=== PATIENT | female | born 1950 | race Caucasian/White ===

== ENCOUNTER 2016-09-19 03:09 | Inpatient (IN) | payer MEDICARE ==
[~2016-09-19] VITALS: Ht 157.5 cm; Wt 59.9 kg
--- NOTE | 2016-09-19 07:11 | NUR ---
Recieved at 0520 from the E.D. via wheelchair, states she is here for eval. by physician, acute symptoms of bipolar manic phase, consents signed, poor historian, need to contact family or pharmacy for medications. VSS,
[2016-09-19 07:46] VITALS: BP 126/64
[2016-09-19 09:02] LABS: BASOPHILS 0.1 % (0.0-2.0); EOSINOPHILS 1.1 % (0-7); HEMATOCRIT 41.6 % (36.0-48.0); HEMOGLOBIN 13.6 g/dL (12-16); IMMATURE GRANULOCYTES 0.1 % (0-5); LYMPHOCYTES 29.5 % (15-50); MCH 30.5 pg (26.0-34.0); MCHC 32.7 g/dL (31.0-37.0); MCV 93.3 fL (80.0-100.0); MEAN PLATELET VOLUME 9.1 fL (7.4-10.4); MONOCYTES 7.2 % (2-11); PLATELET COUNT 192 10x3/uL (130-400); RBC 4.46 10x6/uL (4.00-5.40); RDW 12.2 % (11.5-14.5); WBC 8.9 10x3/uL (4.8-10.8)
[2016-09-19 09:31] LABS: LDL-HDL RATIO 1.8 ratio (1.5-3.5); THYROID STIMULATING HORMONE 0.55 uIU/mL (0.36-3.74)
[2016-09-19 13:49] VITALS: BP 144/75; Ht 157.5 cm; Wt 59.9 kg
--- NOTE | 2016-09-19 15:00 | NUR ---
B)Pt alert, pacing about day room, stating, "You can't hold me here!" Pt will re-direct with calm conversation and reassurance that the staff here was going to help her feel better. I) Admin meds as ordered, provide group therapy as directed. R) No s/s adverse reaction to medications. P) Cont plan of care including meds and group therapy until discharge.
[2016-09-19 19:33] VITALS: BP 159/80
--- NOTE | 2016-09-19 22:00 | NUR ---
RECEIVED IN DAYROOM PACING AROUND SOCIALIZING. CALMM AND COOPERATIVE WITH ASSESSMENT AND CARE. SEE SHIFT ASSESSMENT FLOW SHEET FOR DETAILS.
--- NOTE | 2016-09-20 07:27 | PSY ---
PATIENT NAME:JARED WICK MEDICAL RECORD: [id number] : 50 LOCATION:[facility] ADMISSION DATE: 09/19/16 ACCOUNT: [id number] PSYCHIATRIC EVALUATION DATE OF EVALUATION: 09/19/16 Psychiatric Evaluation IDENTIFYING DATA: The patient is 65 years old and she presented to the Emergency Room last night. CHIEF COMPLAINT: Terra. HISTORY OF PRESENT ILLNESS: The patient is very delusional and manic. She is hyperverbal and disorganized in her thought processes. She had a belief that the police officers in [facility] are somehow trying to put their genitals into her hands and she is very distressed about this. She says she wants to be evaluated and for us to certify to her family that she is not "insane". The patient denies that she would seek to harm herself or others. She is very pressured in her speech, hyperverbal, disorganized in her thought processes and manic. She denies substance abuse. PAST MEDICAL HISTORY: Significant for hypertension and diabetes. PAST PSYCHIATRIC HISTORY: Significant for 30 years of treatment for a chronic mental illness. The patient has been followed on an outpatient basis by [facility]. She has had previous hospitalizations, but none recently. Her outpatient provider at the [facility] recently took her off of lithium because she was having a tremor. The lithium was subsequently restarted, but at a lower dose. FAMILY HISTORY: Unknown. SOCIAL HISTORY: The patient is . She has adult children and grandchildren. She is on disability and denies substance abuse issues. MENTAL STATUS EXAMINATION: The patient is awake, alert and oriented to person, place, time and situation. Her mood is anxious. Her affect is constricted. Thought processes are circumstantial. Memory, concentration and abstraction abilities are moderately impaired. She denies any active intent to harm herself or others as well as overt psychotic symptoms. ASSETS: Supportive family members. LIABILITIES: Limited insight. DIAGNOSTIC IMPRESSION: AXIS I: Bipolar disorder, manic. AXIS II: Deferred. AXIS III: Hypertension and diabetes. AXIS IV: Moderate stressors. AXIS V: Global assessment of functioning is 35. PLAN: At this time, the patient is admitted to the hospital secondary to agitated, manic behaviors, along with delusions. She will be comprehensively evaluated and treated with both mood stabilizing and antipsychotic medications. Her long-term prognosis is guarded. TRANSINT:[id number] Voice Confirmation ID: [id number] DOCUMENT ID: [id number] PATRICIA FLORES MD at 0727 CC: [id number] DICTATION DATE: 09/19/161525 PRIVATE DETECTIVE: 09/19/16 1549 ADM IN [facility] [address] [place] [address]
[2016-09-20 09:26] VITALS: BP 161/71
--- NOTE | 2016-09-20 12:07 | NUR ---
Patient anxious, pacing the floor, exit seeking, wringing her hands.
--- NOTE | 2016-09-20 15:13 | NUR ---
Pacing floor, scanning vision, attempting to throm herself into staff, attempting to fall and throw herself in the floor. " I need some medication my behavior is bad", dorcas stating she is anxious. Prn medications administered.
--- NOTE | 2016-09-20 16:00 | NUR ---
Patient spouse came to visit, gave him an update on patient current behavior so far today, he states oh boy she can get worst than that, informed her about her exit seeking and wanting to go home, he states he felt like he should not see her today because he knows how she can get, and informs nurse that he once had to send her to the state because she got so bad. " I think I will try to come back and visit on Wednesday" Informed him that he can try to call and talk to her between 5:30-7:00 he said that probaly would not work either.
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
[2016-09-20 19:30] VITALS: BP 135/50
--- NOTE | 2016-09-20 19:37 | NUR ---
RECEIVED IN DAYROOM. SETTING IN DAYROOM. WITH STAFF AND PEERS AT HER SIDE. SOCIALIZING WITH STAFF AND PEERS AT THIS TIME. THROWING HERSELF INTO FLOOR THIS EVENING.. ATTENTION SEEKING. REDIRECT AND REORIENT NEEDED. CONTINUES TO SET AT TABLE SOCIALIZING WITH STAFF. CONTINUE PLAN OF CARE
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
--- NOTE | 2016-09-20 22:00 | NUR ---
PRN Haldol 2 mg PO given for anxiety.
[2016-09-21] MEDS ORDERED: METOPROLOL TART25 MG PO (10:34)
[2016-09-21] MEDS ORDERED: MELATONIN 3 MG1 TAB PO (10:35)
[2016-09-21] MEDS ORDERED: ACCUPRIL5 MG PO (10:35)
[2016-09-21] MEDS ORDERED: GEODON80 MG PO (10:36)
[2016-09-21] MEDS ORDERED: PRAVACHOL20 MG PO (10:36)
[2016-09-21] MEDS ORDERED: NORVASC5 MG PO (10:37)
[2016-09-21] MEDS ORDERED: GLUCOPHAGE1000 MG PO (10:37)
[2016-09-21] MEDS ORDERED: LITHIUM CARBON150 MG PO (10:38)
[2016-09-21] MEDS ORDERED: RESTORIL15 MG PO (10:38)
[2016-09-21] MEDS ORDERED: OXYBUTYNIN15 MG/BOTT PO (10:38)
[2016-09-21] MEDS ORDERED: PEPCID20 MG PO (10:39)
[2016-09-21] MEDS ORDERED: PRECOSE25 MG PO (10:39)
[2016-09-21] MEDS ORDERED: GLIPIZIDE10 MG PO (10:40)
[2016-09-21] MEDS ORDERED: ALENDRONATE SOD70 MG PO (10:40)
[2016-09-21] MEDS ORDERED: ASPIRIN81 MG PO (10:40)
[2016-09-21 11:30] LABS: APPEARANCE CLEAR (CLEAR); BILIRUBIN NEGATIVE (NEGATIVE); COLOR YELLOW (YELLOW); GLUCOSE NEGATIVE (NEGATIVE); KETONE NEGATIVE (NEGATIVE); LEUKOCYTE ESTERASE NEGATIVE (NEGATIVE); NITRITE NEGATIVE (NEGATIVE); PROTEIN NEGATIVE (NEGATIVE); UROBILINOGEN NORMAL (NORMAL)
[2016-09-21 13:24] VITALS: BP 109/59
--- NOTE | 2016-09-21 14:00 | NUR ---
Pt sat in floor of day room, scooted all around day room on buttocks, at times when she would tire, she would lie in floor with eyes closed, then sit up and scoot around some more. At one time, she looked at another patient and called him Franky and said what a beautiful face he has. Refused to re-direct at this time.
--- NOTE | 2016-09-21 16:01 | NUR ---
B.) Received patient this am ambulating in hallway, alert and oriented to her name only. Pacing around and going into other patients room. Patient is hard to redirect, she process instructions briefly then her attention is deferred to something else, unable to follow simple instructions of taking off her wet pants and brief, dorcas started putting briefs over her wet pants. I.) Administer medications and monitor compliance, redirect for inappropriate behavior and set limitations on inappropriate behavior. Assess for any manic behavior, redirect for and intrusiveness. Monitor safety. R.) Compliant with medications, patient is manic and intrusive, difficult redirect and times, patient will do the opposite of whats asked, provided concentration activity of coloring with markers, patient would only sit still for approximately 10 minutes, did sleep approximately an hour and half, then jumped up screaming " I'm Franky, I'm Franky and I'm going to ." then laid herself in the floor with her arms out stretched, then sat up singing hymns. P.) Continue plan of care and redirecting patient for inappropriate behavior, continue to monitor and maintain safety.
--- NOTE | 2016-09-21 16:14 | NUR ---
Patient anxious, wringing hands, pacing the hallway sits in one chair then gets up and sit in another scanning the room. Prn Ativan po given for signs of anxiety.
--- NOTE | 2016-09-21 19:43 | NUR ---
RECEIVED IN DAYROOM. SETTING AT TABLE WITH PEERS AND STAFF. CHECKING DOORS. WANTS TO GO TO OTHER AREA. CALM AND COOPERATIVE WITH CARE AND ASSESSMENT. REDIRECT AND REORIENT NEEDED. CONTINUES TO SET AT TABLE WITH STAFF AND PEERS. CALM AND COOPERATIVE. CONTINUE PLAN OF CARE
--- NOTE | 2016-09-21 21:00 | NUR ---
SET HERSELF DOWN IN FLOOR AND REFUSES TO GET UP. HAD TO BE LIFTED BY STAFF AND SET IN CHAIR
[2016-09-21 22:18] VITALS: BP 165/70
--- NOTE | 2016-09-22 02:59 | NUR ---
IN [place] AT NURSES STATION SETTING IN RECLINING CHAIR. ONE ON ONE. REFUSES TO STAY IN BED.TURNING ON SHOWER AND GETTING HER BED CLOTHS WET.
--- NOTE | 2016-09-22 06:20 | NUR ---
PATIENT JUMPED OUT OF CHAIR INTO FLOOR YELLING "I FELL, I FELL". MHT WITNESSED EVENT. THEN PATIENT STATED " I FELL, I NEED PAIN MEDS".
[2016-09-22 09:02] VITALS: BP 123/73
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
--- NOTE | 2016-09-22 15:36 | NUR ---
AT 1200 TODAY LAID SELF DOWN ONTO FLOOR AND REPORTED SHE FELL.ASSISTED UP TO WHEELCHAIR PER 2.
--- NOTE | 2016-09-22 15:39 | PN ---
PATIENT:JARED WICK MEDICAL RECORD: [id number] LOCATION:[facility] ADMISSION DATE: 09/19/16 PROGRESS NOTE DATE OF SERVICE: 09/21/2016 SUBJECTIVE: The patient's case was discussed with staff. She has no new complaint. OBJECTIVE: The patient is in good behavioral control, but manic. She is hyperverbal and disorganized. ASSESSMENT: No change in diagnoses. PLAN: The patient will be treated with lithium and Geodon which are her home medicines. She had not been taking the lithium prior to admission. She will also be given Klonopin to relieve some of her anxiety. ASSESSMENT: No change in diagnoses. PLAN: Current medicines and therapies have been reviewed and will be maintained. Long-term prognosis is guarded. TRANSINT:[id number] Voice Confirmation ID: [id number] DOCUMENT ID: [id number] PATRICIA FLORES MD at 1539 CC: [id number] DICTATION DATE: 09/21/16 1300 LABORATORY ASST: 09/21/16 1305 ADM IN [place] [id number] [place] [address]
[2016-09-22 20:00] VITALS: BP 131/65
--- NOTE | 2016-09-22 20:22 | NUR ---
RECEIVED IN DAYROOM. LAYING IN RECLINGING CHAIR WITH EYES CLOSED. RESPONDS TO TOUCH. CALM AND COOPERATIVE WITH CARE AND ASSESSMENT. MONITOR FOR SAFETY. CONTINUES TO REST WITH EYES CLOSED. CONTINUE PLAN OF CARE
[2016-09-23 06:12] LABS: VITAMIN D 25 HYDROXY 34.6 ng/mL (30.0-100.0)
[2016-09-23 07:20] LABS: RAPID PLASMA REAGIN Non Reactive (Non Reactive)
[2016-09-23 08:12] VITALS: BP 168/76
[2016-09-23 08:16] LABS: FOLATE (FOLIC ACID) - SERUM 13.1 ng/mL (>3.0)
--- NOTE | 2016-09-23 09:20 | NUR ---
Patient faked herself falling, the fall was witnessed, staff state she held her head up and fell on side, she did not try to prevent the fall.
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
--- NOTE | 2016-09-23 14:51 | PN ---
PATIENT:JARED WICK MEDICAL RECORD: [id number] LOCATION:[facility] ADMISSION DATE: 09/19/16 PROGRESS NOTE DATE OF SERVICE: 09/22/2016 SUBJECTIVE: The patient's case was discussed with staff. She has no new complaint. OBJECTIVE: The patient denies intent to harm herself or others. She generally tolerates her medicines well. ASSESSMENT: No change in diagnoses. PLAN: Current medicines and therapies have been reviewed and will be maintained. Long-term prognosis is guarded. TRANSINT:[id number] Voice Confirmation ID: [id number] DOCUMENT ID: [id number] PATRICIA FLORES MD at 1451 CC: [id number] DICTATION DATE: 09/22/16 1534 DIRECTOR OF GUIDANCE IN PUBLIC SCHOOLS: 09/22/16 1609 ADM IN [place] [id number] [place] [address]
--- NOTE | 2016-09-23 15:04 | NUR ---
Nutrition follow-up: Diet: ADA consistent CHO PO intake ~75% average of last 9 meals Labs reviewed Wt: 132# RDN following.
[2016-09-23 19:46] VITALS: BP 88/68
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
[2016-09-24 07:42] VITALS: BP 156/78
--- NOTE | 2016-09-24 10:57 | NUR ---
RECEIVED THIS AM SITTING IN WHEELCHAIR IN HALLWAY AT NURSES STATION.IS ORIENTED TO SELF AND PLACE.STATED "IT'S DEMETRIUS YODIT".REORIENTED WITH QUESTIONABLE RESULTS.TALKATIVE AT TIMES BUT HAS BEEN QUIETER TODAY THAN YESTERDAY.WILL CONTINUE WITH PLAN OF CARE,MONITOR FOR SAFETY AND CHANGES. IS COMPLIANT WITH MEDS.
--- NOTE | 2016-09-24 13:36 | NUR ---
PT CONTINUES TO COMPLAIN OF GENERALIZED PAIN BUT IS UNABLE TO TELL ME WHERE SHE HURTS. COPING SKILLS USED TO HELP PT RELAX TO DECREASE HER PAIN. PT IS RESTING AT THIS TIME. ORIENTED TO PERSON BUT THINKS THAT SHE IS IN THE [facility]. I EXPLAINED THAT SHE WAS AT [facility]. FALL PRECAUTIONS IN PLACE. MED COMPLIANT. WILL CONTINUE TO MONITOR. CONTINUE PLAN OF CARE.
--- NOTE | 2016-09-24 14:20 | PN ---
PATIENT:JARED WICK MEDICAL RECORD: [id number] LOCATION:[facility] ADMISSION DATE: 09/19/16 PROGRESS NOTE DATE OF SERVICE: 09/23/2016 SUBJECTIVE: The patient's case was discussed with staff. She has no new complaint. OBJECTIVE: The patient denies intent to harm herself or others. She generally tolerates her medicines well. ASSESSMENT: No change in diagnoses. PLAN: The patient is a little over sedated. I am going to reduce the dose of Klonopin and will check a lithium level. TRANSINT:[id number] Voice Confirmation ID: [id number] DOCUMENT ID: [id number] PATRICIA FLORES MD at 1420 CC: [id number] DICTATION DATE: 09/23/16 1503 BUSINESS DEPARTMENT CHAIR: 09/23/16 1736 ADM IN [place] [id number] [place] [address]
[2016-09-24 19:30] VITALS: BP 107/53
--- NOTE | 2016-09-25 01:15 | NUR ---
B) Recieced sitting in the day room at the table, alerty and oriented to self and hospital, thinks it is mar or the day after, intrusive and attention seeking, less behaviors than yesterday, I) Administered perscribed medications, redirected as needed, R) Medication compliant, resting quietly in bed, P) Continue plan of care.
[2016-09-25 07:59] VITALS: BP 134/94
--- NOTE | 2016-09-25 14:07 | NUR ---
(B)RECEIVED PATIENT LAYING IN THE BED NUDE. ORIENTED X3. RELATES "THE REASON I AM IN HERE "I'M BIPOLAR. I'VE BEEN BIPOLAR SINCE 1987." DISORGANIZED AND JUMPS FROM TOPIC TO TOPIC AND THEN RETURNS TO A PREVIOUS TOPIC. DIFFICULT TO REFOCUS AND LINGERS ON ABOUT BIPOLAR THEN INFORMED NURSE " I WAS NOT SLEEPING. EVERY since I had been in the hosp[facility] before I CAN'T SLEEP." "I COULD NOT PEE THEN WHEN I GOT HERE I WOULD PEE WHEN I WANTED TO AND WOULDN'T PEE WHEN I DIDN'T WANT TO PEE. CAUSE IF I PEED WHEN I WANTED TO I WOULD FLOOD THIS WHOLE PLACE." FREQUENTLY READS THE BIBLE AND SINGS GOSPEL SONGS. (I)ADMINISTER MEDS AND MONITOR COMPLIANCE. REDIRECT PATIENT WHEN INTERACTING TO CONCENTRATE ON SUBJECT. (R)MED COMPLIANT. RAMBLES AND JUMPS FROM TOPIC TO TOPIC. IMPAIRED ABILITY TO CONCENTRATE. (P)CONTINUE POC AND MAINTAIN FALL PRECAUTIONS.
--- NOTE | 2016-09-25 16:05 | NUR ---
SW SPOKE WITH PT'S SISTER ABOUT HER HX, DISEASE PROCESS, MEDICATION ADJUSTMENTS, AND DISCHARGE PLANNING. PT'S SISTER STATED SHE WAS GRATEFUL SW TOOK THE TIME TO HEAR PT'S HX. PT WILL DISCHARGE HOME WHEN STABLE.
--- NOTE | 2016-09-25 16:18 | PN ---
PATIENT:JARED WICK MEDICAL RECORD: [id number] LOCATION:[facility] ADMISSION DATE: 09/19/16 PROGRESS NOTE DATE OF SERVICE: 09/24/2016 SUBJECTIVE: The patient's case was discussed with staff. She has no new complaint. OBJECTIVE: The patient is still quite delusional. She makes very bizarre statements. She did not sleep well last night, but appears a little bit drowsy today. She complains of being drowsy. She makes a number of very bizarre psychotic statements. She did have a lithium level drawn yesterday. It is subtherapeutic at 0.6 mEq. I do plan to increase the dose of her lithium slightly. I am also going to reduce the Klonopin secondary to some sedation. She has been on Geodon for a long time and I am reluctant to change that since she feels that is a medication that has helped her, but it may be necessary to do so. The patient in my opinion would be very appropriate for long-term hospitalization at the [facility]. I am told that there are no [facility] beds and furthermore was unhappy to learn that there are only 300 [facility] beds for this [facility] with over [facility] people and 200 of the beds are filled with the criminally mentally ill and they are leaving only 100 [facility] beds for a population this size. I was told that there is a 6-month waiting list for the [facility] beds which leaves me to stabilize her in this acute environment. TRANSINT:[id number] Voice Confirmation ID: [id number] DOCUMENT ID: [id number] PATRICIA FLORES MD at 1618 CC: [id number] DICTATION DATE: 09/24/16 1434 SURGICAL ELASTIC KNITTER: 09/24/16 1529 ADM IN [facility] [address] [place] [address]
--- NOTE | 2016-09-25 18:56 | NUR ---
ATTEMPTED TO CALL PATIENT'S CONTACT NUMBER UNSUCCESSFULLY. MESSAGE AND NUMBER LEFT FOR CALL BACK.
[2016-09-25 19:30] VITALS: BP 109/65
--- NOTE | 2016-09-25 20:20 | NUR ---
B) RECEIVED IN DAYROOM LYING ON SOFA WITH EYES CLOSED. AROUSED EASILY AND ASSISTED UP TO TAKE HER PM MEDICATIONS. CALM AND COOPERATIVE WITH CARE. I) ADMINISTER PRESCRIBED MEDICATIONS. REDIRECT AND REORIENT NEEEDED. R) NEDICATION COMPLIANT, REMAINS CALM AND COOPERATIVE. P) CONTINUE POC.
[2016-09-26 07:50] VITALS: BP 136/64
--- NOTE | 2016-09-26 07:56 | NUR ---
B) Patient is awake, but she says she is still sleepy and she is sitting in the hallway in her w/c with eyes closed. Patient did smile and speak when assessment being done. She denies any problems, no S.I. and currently behaving appropriately. Patient self propels in w/c, assists with transfers. I) Provide prescribed meds and redirect to unit milieu as needed. R) Patient is compliant with medications and she is interacting with staff at times. P) Continue plan of care.
--- NOTE | 2016-09-26 11:00 | NUR ---
Patient is yelling out "I want to talk to my sister" then she yells "Ari", German is able to redirect patient to not yell. Patient is mimicking another patients behavior, this is not a behavior she exhibits, but she does try to be center stage for attention.
--- NOTE | 2016-09-26 11:28 | NUR ---
Patient has been trying to get a lot of attention today, at first she spoke with one other patient for quite awhile, but then the other patient walked away and then patient began singing, the phone rang and she got louder and louder to get attention. She stood up and would not redirect, grabbed a walker and would not leave it alone, she is talking aloud and saying she is talking to her sister and she is yelling out.
--- NOTE | 2016-09-26 11:34 | NUR ---
Patient yelling, arguing. Haldol 2 mg IM in left deltoid.
--- NOTE | 2016-09-26 12:11 | NUR ---
Asked patient if she would like to go into the dining room to have lunch, patient shook her head "No" Patient has her eyes closed and she is being quiet at this time.
[2016-09-26 20:00] VITALS: BP 174/81
--- NOTE | 2016-09-26 20:20 | NUR ---
B) RECEIVED IN DINING ROOM SITTING IN W/C EATING A CHOCOLATE PUDDING. SHE IS ABLE TO AMBULATE SLOWLY AND TRANSFERS WELL. SHE IS AWAKE AND ALERT. SHE IS ORIENTED TO PERSON AND PLACE. SHE IS IN A PLEASANT MOOD, BUT TIRED. I) ADMINISTER PRESCRIBED MEDICATIONS, REDIRECT AND REORIENT NEEDED. VSS. R) SHE IS COMPLIANT WITH MEDICATIONS AND UNIT MILIEU. CALM AND COOPERATIVE WITH ASSESSMENT AND CARE. P) CONTINUE POC AND MONITOR FOR SAFETY AND CHANGES.
[2016-09-27 07:57] VITALS: BP 116/64
--- NOTE | 2016-09-27 13:40 | NUR ---
RECEIVED THIS AM SITTING IN WHEELCHAIR IN HALLWAY AT NURSES STATION.ORIENTED TO SELF AND HOSPITAL,REORIENTED TO TIME WITH QUESTIONABLE RESULTS.SLEEPY TODAY BUT AROUSES EASILY FOR MEDS.IS CALM AND COOPERATIVE WITH STAFF AND PEERS.WILL CONTINUE WITH PLAN OF CARE ,MONITOR FOR SAFETY AND CHANGES.
[2016-09-27 19:30] VITALS: BP 104/51
--- NOTE | 2016-09-27 19:57 | NUR ---
RECEIVED IN DAYROOM. SETTING IN WHHEL CHAIR WITH EYES CLOSED. RESPONDS TO TOUCH. ATTEMPTS TO STAND WITHOUT ASSIST AT TIMES. REDIRECT AND REORIENT. REINFORCE FALLS SAFETY. CONTINUES TO SET IN WHEELCHAIR WITH EYES CLOSED. CONTINUE PLAN OF CARE
[2016-09-28 02:00] VITALS: BP 99/42
[2016-09-28 07:58] VITALS: BP 113/46
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
--- NOTE | 2016-09-28 13:14 | PN ---
PATIENT:JARED WICK MEDICAL RECORD: [id number] LOCATION:[facility] [address] ADMISSION DATE: 09/19/16 PROGRESS NOTE DATE OF SERVICE: 09/25/2016 SUBJECTIVE: The patient's case was discussed with staff. She has no new complaint. OBJECTIVE: The patient is in good behavioral control with limited insight about her condition. She tolerates her medicines well. ASSESSMENT: No change in diagnoses. PLAN: Current medicines have been reviewed and I am going to check another lithium level. She still is delusional, but I think she has improved. TRANSINT:[id number] Voice Confirmation ID: [id number] DOCUMENT ID: [id number] PATRICIA FLORES MD at 1314 CC: [id number] DICTATION DATE: 09/25/16 1628 SALES RECRUITING COORDINATOR: 09/25/16 [address] [facility] [address] [place] [address]
--- NOTE | 2016-09-28 18:47 | NUR ---
Pt. attempted to phone spouse, but number was unable to be reached. Pt. became angry, refusing to release phone senior administrative services officer, two staff required to remove phone from pt hand. Pt then cont to be angry, commenced to eating paper, refusing to remove it from mouth. Pt cont to chew paper and drink water with it. Staff repeatedly asked her to remove paper from mouth, but pt refused.
[2016-09-28 20:00] VITALS: BP 99/42
--- NOTE | 2016-09-28 21:47 | NUR ---
RECEIVED IN DAYROOM. SETTING IN WHEELCHAIR AT TABLE WITH STAFF AND PEERS AT HER SIDE. ATTEMPTS TO STAND WITHOUT ASSIST. CALM AND COOPERATIVE WITH CARE AND ASSESSMENT. REDIRECT AND REORIENT NEEDED. PM MEDS GIVEN ORDERED. RESTING INM BED EYES CLOSED AT THIS TIME. CONTINUE PLAN OF CARE
[2016-09-29 10:36] VITALS: BP 148/56
--- NOTE | 2016-09-29 14:35 | PN ---
PATIENT:JARED WICK MEDICAL RECORD: [id number] LOCATION:[facility] [address] ADMISSION DATE: 09/19/16 PROGRESS NOTE DATE OF SERVICE: 09/28/2016 SUBJECTIVE: The patient's case was discussed with staff. She has no new complaint. OBJECTIVE: The patient is in good behavioral control, but somewhat confused. ASSESSMENT: No change in diagnoses. PLAN: Current medicines have been reviewed and will be maintained. Long-term prognosis is guarded. The lithium is a medication I feel strongly that she requires. I am however, going to decrease the dose to bring it to a therapeutic range. TRANSINT:[id number] Voice Confirmation ID: [id number] DOCUMENT ID: [id number] PATRICIA FLORES MD at 1435 CC: [id number] DICTATION DATE: 09/28/16 1326 EXTRUDING DEPARTMENT SUPERVISOR: 09/28/16 1430 ADM IN [facility] [address] [place] [address]
[2016-09-29 16:45] LABS: BASOPHILS 0.2 % (0.0-2.0); EOSINOPHILS 2.1 % (0-7); HEMOGLOBIN 13.4 g/dL (12-16); IMMATURE GRANULOCYTES 0.4 % (0-5); LYMPHOCYTES 25.7 % (15-50); MCH 30.4 pg (26.0-34.0); MCHC 32.7 g/dL (31.0-37.0); MEAN PLATELET VOLUME 9.6 fL (7.4-10.4); MONOCYTES 10.7 % (2-11); NEUTROPHILS 60.9 % (40-80); PLATELET COUNT 169 10x3/uL (130-400); RBC 4.41 10x6/uL (4.00-5.40); RDW 12.4 % (11.5-14.5); WBC 13.1 10x3/uL (4.8-10.8)
[2016-09-29 17:07] LABS: ANION GAP 17.7 mmol/L (8-16); CALCIUM 9.8 mg/dL (8.5-10.1); CARBON DIOXIDE 23.1 mmol/L (21.0-32.0); POTASSIUM - SERUM 4.8 mmol/L (3.5-5.1)
--- NOTE | 2016-09-29 17:50 | NUR ---
(B)RECEIVED PATIENT SITTING IN A CHAIR AT THE NURSES STATION. ORIENTED TO "NURSING HOME" AND "WEDNESDAY." POOR INSIGHT INTO THE REASON FOR HOSPITALIZATION RELATING "I'M IN THE HOSPITAL BECAUSE DR FLORES WANTS ME TO. "I GOT MANIC AND I GOT SICK." SMILES AND INTERACTS WITH STAFF HOWEVER DOES NOT SOCIALIZE WITH PEERS. ATTEMPTS TO STAND UNASSISTED AND GAIT IS UNSTEADY. (I)ADMINISTER MEDS AND MONITOR COMPLIANCE.REORIENT NEEDED. (R)MED COMPLIANT. REORIENTS HOWEVER IS FORGETFUL AND REQUIRES INFORMATION TO BE REPEATED. (P)CONTINUE POC AND MAINTAIN FALL PRECAUTIONS.
[2016-09-29 19:33] VITALS: BP 91/43
--- NOTE | 2016-09-29 19:43 | NUR ---
RECEIVED IN HALLWAY. LAYING IN RECLINING CHAIR WITH EYES CLOSED. RESPONDS TO VOICE. CALM AND COOPERATIVE WITH CARE AND ASSESSMENT. ORIENTED X2. REINFORCE FALLS SAFETY. REDIRECT NEEDED. CONTINUES TO REST QUIETY IN RECLINER. CONTINUE PLAN OF CARE
[2016-09-30 08:46] VITALS: BP 135/68
--- NOTE | 2016-09-30 11:11 | NUR ---
(B)RECEIVED PATIENT SLEEPING IN A CHAIR AT THE NURSES STATION. ORIENTED TO SELF, GROUP HOME, SEPTEMBER 30, 2016 HOWEVER THOUGHT THE DAY WAS WEDNESDAY. SMILES WHEN APPROACHED. RELATES IS HOSPITALIZED "I'M BIPOLAR." CALM AND COOPERATIVE. (I)ADMINISTER MEDS AND MONITOR COMPLIANCE. ENCOURAGE GROUP/ACTIVITY PARTICIPATION. (R)MED COMPLIANT. ACTIVELY PARTICIPATES IN SINGING HYMS IN GROUP. PARTICIPATED IN GIVING GOAL FOR HERSELF TODAY. AMBUALTED WITH PHYSICAL THERAPY. CONTINUES TO BE COOPERATIVE WITH UNIT PABLO. (P)CONTINUE POC AND MAINTAIN FALL PRECAUTIONS.
--- NOTE | 2016-09-30 16:57 | PN ---
PATIENT:JARED WICK MEDICAL RECORD: [id number] LOCATION:[facility] ADMISSION DATE: 09/19/16 PROGRESS NOTE DATE OF SERVICE: 09/29/2016 SUBJECTIVE: The patient's case was discussed with staff. She has no new complaint. OBJECTIVE: The patient denies intent to harm herself or others. She generally is tolerating her medications well. ASSESSMENT: No change in diagnoses. PLAN: The patient will have another lithium level checked in the morning. I am shooting for a level around ____ mEq. Her long-term prognosis is guarded. She remains delusional and has paranoid thoughts. TRANSINT:[id number] Voice Confirmation ID: [id number] DOCUMENT ID: [id number] PATRICIA FLORES MD at 1657 CC: [id number] DICTATION DATE: 09/29/16 1442 PROJECT ADMIN: 09/29/16 1454 ADM IN [facility] [address] [place] [address]
[2016-09-30 20:01] VITALS: BP 111/56
--- NOTE | 2016-09-30 20:10 | NUR ---
RECEIVED IN HALLWAY LYING IN RECLINER WITH EYES CLOSED. AROUSES EASILY, CALM AND COOPERATIVE WITH ASSESSMENT AND CARE. PROVIDE PRESCRIBEED MEDICATIONS. REDIRECT AND REORIENT NEEDED. COMPLIANT WITH MEDICATIONS. MAINTAIN SAFETY PRECAUTIONS. CONTINUE WITH PLAN OF CARE.
--- NOTE | 2016-10-01 07:30 | NUR ---
B) On assessment, noticed patients bp 188/78, patients face is red and she is clenching the blanket very tightly. Asked her what she was upset about and she said"I'm mad, I want to go home" Explained to her to relax, that being angry hurts no one but herself and that we still need to adjust medications and then she will get to go home. This eased her mind as she quit clenching the blanket. Rechecked bp manually 182/72, she will receive bp meds shortly. Patient is unsteady, she is currently in a carmine chair but she can self propel minimally in a w/c. She is somewhat attention seeking at times. I) Provide prescribed meds, redirect as needed. R) Patient is compliant with meds, she does like meds crushed in applesauce. P) Continue plan of care.
[2016-10-01 07:42] VITALS: BP 182/72
--- NOTE | 2016-10-01 13:11 | NUR ---
Nutrition Follow Up: Chart reviewed. Diet: Diabetic PO Intake: 82% (9 meal avg) No BM documented No new wt Labs noted - Glucose elevated Meds: Vit B12, Glipizide, Metformin Pt with good po intake at this time. Rec continue current diet. RD following.
--- NOTE | 2016-10-01 13:54 | PN ---
PATIENT:JARED WICK MEDICAL RECORD: [id number] LOCATION:NASRA [facility]Darlene112 ADMISSION DATE: 09/19/16 PROGRESS NOTE DATE OF SERVICE: 09/30/2016 SUBJECTIVE: The patient's case was discussed with staff. She has no new complaint. OBJECTIVE: The patient denies intent to harm herself or others. She is much more cooperative. Her lithium level was still elevated at 1.7 mEq. ASSESSMENT: No change in diagnoses. PLAN: The patient will continue to have her lithium withheld. I will check another lithium level and I am intending to restart the medication at a significantly lower dose. This case is somewhat complicated. The patient as I have documented before was stable, functioning and not hospitalized for 3 decades prior to having her lithium discontinued. Hopefully, she can take a lower dose and not have the level gradually climb, but after discharge, she is going to have to have the level checked more often than someone else would. That would be perhaps once every week or two for at least a couple months and then I would leave it to her outpatient doctor to decide how often afterward. TRANSINT:[id number] Voice Confirmation ID: [id number] DOCUMENT ID: [id number] PATRICIA FLORES MD at 1354 CC: [id number] DICTATION DATE: 09/30/16 1706 PET GROOMER: 09/30/16 2257 ADM IN [place] [id number] [place] [id number]
[2016-10-01 19:30] VITALS: BP 142/69
--- NOTE | 2016-10-01 20:30 | NUR ---
RECEIVED IN DAYROOM SITTING IN RECLINER RESTING WITH EYES CLOSED. AROUSES EASILY TO VOICE. CALM AND PLEASANT,SMILING DURING ASSESSMEENT. PROVIDE PM MEDICATIONS. REDIRECT AND REORIENT NEEDED. MEDICATION COMPLIANT. CONTINUE WITH PLAN OF CARE.
[2016-10-02 07:53] VITALS: BP 187/88
--- NOTE | 2016-10-02 12:35 | PN ---
PATIENT:JARED WICK MEDICAL RECORD: [id number] LOCATION:[facility] ADMISSION DATE: 09/19/16 PROGRESS NOTE DATE OF SERVICE: 10/01/2016 SUBJECTIVE: The patient's case was discussed with staff. She has no new complaint. OBJECTIVE: The patient has a lithium level of 1.2 mEq. She is much more cooperative and appropriate. She has no observed psychotic symptoms. ASSESSMENT: No change in diagnoses. PLAN: Brief supportive and educational interventions were made. The patient's long-term prognosis is guarded. She does have a normal creatinine and I am unsure why she develops a toxic lithium level. She will be monitored closely and should have weekly lithium levels drawn and ____ established that the dose is normalized in an acceptable level. TRANSINT:[id number] Voice Confirmation ID: [id number] DOCUMENT ID: [id number] PATRICIA FLORES MD at 1235 CC: [id number] DICTATION DATE: 10/01/16 1411 DIET CLERK: 10/01/16 1708 ADM IN [place] [id number] [place] [id number]
[2016-10-02 16:16] VITALS: BP 118/66
--- NOTE | 2016-10-02 18:03 | NUR ---
B.) Received this am alert and oriented to name and place, patient is social with staff this am and is reading her Bible. I.) Administer medications and monitor compliance. Redirect and reorient as need. Monitor safety. R.) Compliant with medications, calm today and cooperative, patient questioned medications and was able to verbalize medications and use, more alert, cooperative and participated in group. Required no redirection. P.) Continue plan of care.
[2016-10-02 19:55] VITALS: BP 142/71
--- NOTE | 2016-10-02 23:33 | NUR ---
B) Recieved sitting in a wheelchair in the day room, alert and oriented to self and hospital, calm and cooperative with staff I) Administered perscribed medications, redirected and oriented as needed, R) Medication compliant, resting now quietly in bed, P) Continue plan of care, continue to monitor.
[2016-10-03 09:27] VITALS: BP 123/59
--- NOTE | 2016-10-03 12:31 | NUR ---
RECEIVED THIS AM SITTING IN WC AT NURSES STATION.ORIENTED X3.CALM AND COOPERATIVE.COMPLIANT WITH MEDS.COOPERATIVE WITH STAFF AND PEERS.WILL CONTINUE WITH PLAN OF CARE,MONITOR FOR SAFETY AND CHANGES.
--- NOTE | 2016-10-03 17:00 | NUR ---
PATIENTS SPOUSE ASKED TO GET PATIENTS CELL PHONE, DID LOOK IN D/C BELONGINGS LIST DID NOT SEE A ED SAFE BELONGINGS SHEET, BUT DID NOTICE PATIENT HAD A BLACK PURSE IN THE STORAGE. LOOKED IN PURSE AND THE CELL PHONE WAS IN THERE. GAVE CELL TO SPOUSE. HE SAYS HE WILL PUT MORE MINUTES ON IT TOMORROW. ALSO WAS ABLE TO ACQUIRE PATIENTS PHARMACY.
[2016-10-03 19:45] VITALS: BP 118/58
--- NOTE | 2016-10-04 02:42 | NUR ---
B) Recieved sitting in day room, alert and oriented to self and hospital, calm and keeping to herself, cooperative with care , I) Administered perscribed medications, redirected and oriented as needed, R) medication compliant, resting now quietly, P) Continue plan of care, continue to monitor.
[2016-10-04 08:01] VITALS: BP 140/72
--- NOTE | 2016-10-04 14:07 | NUR ---
B) PATIENT IS IN THE DINING ROOM SITTING IN A W/C AND SHE IS PLEASANT, SHE IS SELF PROPELLING IN THE W/C, SHE AMBULATES WITH ASSIST AND USES A WALKER, SHE CAN TRANSFER WITH STAFF ASSIST. SHE IS ORIENTED X3. HAS NOT SHOWN ANY AGGRESSION OR HALLUCINATIONS TODAY. I) PROVIDE PRESCRIBED MEDICATION. R) PATIENT IS AWAKE AND INTERACTING WITH STAFF, SHE HAS BEEN PARTICIPATING INTERMITTANTLY WITH ACTIVITIES TODAY. P) CONTINUE PLAN OF CARE.
[2016-10-04 19:22] VITALS: BP 123/49
--- NOTE | 2016-10-04 21:08 | NUR ---
RECEIVED IN DAYROOM. SETTING AT TABLE WITH STAFF AND PEERS.CALM AND COOPERATIVE WITH CARE AND ASSESSMENT. ALERT AND ORIENTED X3. ENCOURAGE TO EXPRESS NEEDS. PM MEDS GIVEN ORDERED. RESTING IN BED WITH EYES CLOSED AT THIS TIME. CONTINUE PLAN OF CARE
[2016-10-05 09:11] VITALS: BP 120/63
--- NOTE | 2016-10-05 14:45 | PN ---
PATIENT:JARED WICK MEDICAL RECORD: [id number] LOCATION:NASRA [facility] ADMISSION DATE: 09/19/16 PROGRESS NOTE DATE OF SERVICE: 10/02/2016 SUBJECTIVE: The patient's case was discussed with staff. She has no new complaint. OBJECTIVE: The patient denies intent to harm herself or others. She has a lithium level of 0.8 mEq. I have restarted her on lithium at bedtime. She still has some mood instability, but on the whole has significantly improved. ASSESSMENT: No change in diagnoses. PLAN: I anticipate her blood level of lithium stay in approximately this range and I will recheck a level tomorrow. TRANSINT:[id number] Voice Confirmation ID: [id number] DOCUMENT ID: [id number] PATRICIA FLORES MD at 1445 CC: [id number] DICTATION DATE: 10/02/16 1256 COMPUTER CONSULTANT: 10/02/16 1452 ADM IN [place] [address] [place] [address]
[2016-10-05] MEDS ORDERED: MELATONIN 3 MG1 TAB PO (15:10)
[2016-10-05] MEDS ORDERED: KLONOPIN0.5 MG PO (15:10)
[2016-10-05] MEDS ORDERED: GEODON40 MG PO (15:10)
[2016-10-05] MEDS ORDERED: VITAMIN B-121000 MCG PO (15:10)
[2016-10-05] MEDS ORDERED: LITHIUM CARBON150 MG PO (15:10)
--- NOTE | 2016-10-05 16:05 | NUR ---
Patient spouse here to pick her up, discharge instructions given to spouse and patient, personal belongings, belongings from security and medications brought in from home signed for and released to patient and spouse, verbalized understanding of discharge instructions and importance of follow for MD appointments and having [place] level checked often. Spouse verified that yes he takes patient to outpatient therapy for counseling and for physical therapy.
--- NOTE | 2016-10-05 17:23 | NUR ---
B.) Alert and oriented times 3, patient carrying on appropriate conversation with staff and answers questions correctly. I.) Administer medications and monitor compliance. redirect and reorient as need. monitor safety and changes in behavior. R.) Compliant with medications, patient remains oriented appropriately, aware of discharge today and has asked and answered questions regarding her discharge. Patient offered and recommended home health for physical therapy, she declined stating she already fgoed to outpatient physical therapy. Plan of care goals met, no falls. P.) Continue with plan to discharge today. spouse has been contacted and is aware of discharge, will pick here up when called.
--- NOTE | 2016-10-06 14:57 | PN ---
PATIENT:JARED WICK MEDICAL RECORD: [id number] LOCATION:EstefaníaDarleneTEDDY [address] ADMISSION DATE: 09/19/16 PROGRESS NOTE DATE OF SERVICE: 10/05/2016 SUBJECTIVE: The patient's case was discussed with staff. She has no new complaint. OBJECTIVE: The patient has a subtherapeutic lithium level. The level is well below what would I have anticipated given how high it was previously. I am going to keep her on the same amount of lithium since she is stable and doing well. I will refer her to outpatient followup and she should have a lithium level drawn in another week. ASSESSMENT: No change in diagnoses. PLAN: Current medicines and therapies have been reviewed and will be maintained. Her long-term prognosis is guarded. TRANSINT:[id number] Voice Confirmation ID: [id number] DOCUMENT ID: [id number] PATRICIA FLORES MD at 1457 CC: [id number] DICTATION DATE: 10/05/16 1507 RELIEF DRILLER: 10/05/16 1802 DIS IN 10/05/16 [place] [id number] [place] [address]
--- NOTE | 2016-10-14 17:02 | DS ---
PATIENT:JARED WICK :50 MEDICAL RECORD: [id number] DISCHARGE SUMMARY ADMISSION DATE: 09/19/16 DISCHARGE DATE: 10/05/16 Psychiatric Discharge Summary IDENTIFYING DATA: The patient is 65 years old and she was admitted to the hospital secondary to symptoms of genesis. She was delusional as well as manic. She was hyperverbal and had disorganized thought processes. She believed the police officers in town were somehow trying to put their genitals into her hands and she was very distressed about this. She said she wanted to be evaluated by us at the hospital so that we could certify to her family that she was not "insane". She was distressed because they are accusing her of being "insane". She has a long history of mental illness, but had been stabilized for many years on lithium. [place] was discontinued and she has become psychotic and manic. HOSPITAL COURSE: The patient was admitted to the hospital and fully evaluated from both a medical, psychological, and social standpoint. She clearly had symptoms consistent with a classic bipolar disorder, manic phase. She had been stable on lithium for almost 3 decades without a hospitalization. She had this medication discontinued by a new provider who understandably wanted to see how she would do without it, especially since the patient had not had breakthrough symptoms for a long time. The patient was treated with lithium. She did become toxic on it, the dose was reduced. She showed significant and dramatic improvement in her manic symptoms. She also was no longer delusional at the time of discharge. Followup appointment should be with her primary care physician as well as her outpatient psychiatrist. DISCHARGE DIAGNOSES: AXIS I: Bipolar disorder, manic. AXIS II: None. AXIS III: Hypertension and diabetes. AXIS IV: Moderate stressors. AXIS V: Global Assessment of Functioning is 45. PLAN: At the time of discharge, the patient was in good behavioral control and did not represent an acute risk to herself or others. Her lithium level should be checked on a weekly basis initially. She has normal kidney functions and I am uncertain why she became toxic in the hospital on what is in actuality a fairly modest dose. TRANSINT:[id number] Voice Confirmation ID: [id number] DOCUMENT ID: [id number] PATRICIA FLORES MD at 1702 CC: [id number] DICTATION DATE: 10/13/16 1359 BERRY GROWER: 10/13/16 1411 DIS IN 10/05/16 [facility] [address] [place] [id number]
== END 2016-10-05 16:05 | disposition home or self-care (01) | DRG 885 ==
LOC: D.ER 03:09 → D.PSYCH 04:39
PROVIDERS: ADMIT Psychiatry & Neurology Psychiatry
DX: F31.12 Bipolar disorder, current episode manic without psychotic features, moderate (principal); E11.40 Type 2 diabetes mellitus with diabetic neuropathy, unspecified; I10 Essential (primary) hypertension; F22 Delusional disorders; K21.9 Gastro-esophageal reflux disease without esophagitis; E78.5 Hyperlipidemia, unspecified; N32.81 Overactive bladder; E53.8 Deficiency of other specified B group vitamins

== ENCOUNTER 2019-04-21 10:46 | Emergency (ER) | payer OTHER ==
[~2019-04-21] VITALS: Ht 157.5 cm; Wt 57.3 kg
[~2019-04-21 10:46] MED LIST: ACCUPRIL5 MG PO; ALENDRONATE SOD70 MG PO; ASPIRIN81 MG PO; GEODON40 MG PO; GEODON80 MG PO; GLIPIZIDE10 MG PO; GLUCOPHAGE1000 MG PO; KLONOPIN0.5 MG PO; LITHIUM CARBON150 MG PO; MELATONIN 3 MG1 TAB PO; METOPROLOL TART25 MG PO; NORVASC5 MG PO; OXYBUTYNIN15 MG/BOTT PO; PEPCID20 MG PO; PRAVACHOL20 MG PO; PRECOSE25 MG PO; RESTORIL15 MG PO; VITAMIN B-121000 MCG PO
[2019-04-21 10:59] VITALS: Ht 157.5 cm; Wt 57.3 kg
[2019-04-21] MEDS ORDERED: RISPERDAL2 MG PO (11:06)
[2019-04-21 11:37] LABS: BASOPHILS 0.1 % (0-2); EOSINOPHILS 0.5 % (0-7); HEMOGLOBIN 13.2 g/dL (12-16); IMMATURE GRANULOCYTES 0.4 % (0-5); MCH 31.9 pg (26.0-34.0); MCHC 33.8 g/dL (31.0-37.0); MCV 94.2 fL (80.0-100.0); MEAN PLATELET VOLUME 8.6 fL (7.4-10.4); MONOCYTES 7.5 % (2-11); NEUTROPHILS 78.5 % (40-80); RBC 4.14 10x6/uL (4.00-5.40); RDW 12.7 % (11.5-14.5)
[2019-04-21 11:40] LABS: PLATELET COUNT 219 10x3/uL (130-400)
[2019-04-21 12:06] LABS: ALBUMIN 3.5 g/dL (3.4-5.0); ALKALINE PHOSPHATASE 60 U/L (46-116); ALT (SGPT) 13 U/L (10-68); BILIRUBIN - TOTAL 0.27 mg/dL (0.2-1.3); CALC OSMOLALITY 283 mosm/kg (275-300); CALCIUM 11.4 mg/dL (8.5-10.1); CARBON DIOXIDE 27.7 mmol/L (21.0-32.0); CHLORIDE - SERUM 101 mmol/L (98-107); CREATININE - SERUM 0.8 mg/dL (0.6-1.3); GLUCOSE 186 mg/dL (74-106); POTASSIUM - SERUM 3.9 mmol/L (3.5-5.1); PROTEIN - SERUM 7.2 g/dL (6.4-8.2); SODIUM 138 mmol/L (136-145); UREA NITROGEN 22 mg/dL (7-18); eGFR NON AFRICAN AMERICAN 75 mL/min (90-120)
[2019-04-21 13:47] LABS: APPEARANCE CLEAR (CLEAR); BILIRUBIN NEGATIVE (NEGATIVE); COLOR YELLOW (YELLOW); GLUCOSE NEGATIVE (NEGATIVE); KETONE NEGATIVE (NEGATIVE); NITRITE NEGATIVE (NEGATIVE); PROTEIN NEGATIVE (NEGATIVE); SPECIFIC GRAVITY 1.015 (1.005-1.020); UROBILINOGEN NORMAL (NORMAL)
[2019-04-21 13:48] LABS: BACTERIA FEW /hpf (NONE SEEN); EPITHELIAL CELLS OCC /hpf (0-5); RED CELLS - URINE 0-5 /hpf (0-5); WHITE CELLS - URINE OCC /hpf (0-5)
[2019-04-21 13:49] LABS: MUCUS <1+ /lpf (NONE SEEN)
[2019-04-21 15:34] VITALS: BP 130/76
== END 2019-04-21 14:03 | disposition home or self-care (01) ==
LOC: D.ER 10:46
PROVIDERS: Family Medicine
DX: S09.90XA Unspecified injury of head, initial encounter (principal); W19.XXXA Unspecified fall, initial encounter; R53.1 Weakness; E11.9 Type 2 diabetes mellitus without complications; E78.5 Hyperlipidemia, unspecified; K21.9 Gastro-esophageal reflux disease without esophagitis

== ENCOUNTER 2019-06-09 12:45 | Inpatient (IN) | payer OTHER ==
[~2019-06-09] VITALS: Ht 157.5 cm; Wt 58.1 kg
[~2019-06-09 12:45] MED LIST changes: +RISPERDAL2 MG PO
[2019-06-09 13:37] LABS: BASOPHILS 0.1 % (0-2); EOSINOPHILS 0.3 % (0-7); HEMATOCRIT 34.5 % (36.0-48.0); HEMOGLOBIN 11.5 g/dL (12-16); IMMATURE GRANULOCYTES 0.3 % (0-5); LYMPHOCYTES 11.1 % (15-50); MCH 31.3 pg (26.0-34.0); MCHC 33.3 g/dL (31.0-37.0); MEAN PLATELET VOLUME 8.9 fL (7.4-10.4); MONOCYTES 8.5 % (2-11); NEUTROPHILS 79.7 % (40-80); PLATELET COUNT 212 10x3/uL (130-400); RBC 3.67 10x6/uL (4.00-5.40); RDW 12.5 % (11.5-14.5); WBC 15.8 10x3/uL (4.8-10.8)
[2019-06-09 13:39] VITALS: BP 156/68
--- NOTE | 2019-06-09 13:40 | NUR ---
HEMATOMA NOTED TO PT R BUTTOCK. PT STATES SHE FELL YESTERDAY WHICH CAUSED THE BRUISE.
[2019-06-09 13:41] LABS: APTT 23.6 SECONDS (22.8-39.4)
[2019-06-09 13:53] LABS: ALBUMIN 3.7 g/dL (3.4-5.0); ALKALINE PHOSPHATASE 67 U/L (46-116); ALT (SGPT) 19 U/L (10-68); BILIRUBIN - TOTAL 0.36 mg/dL (0.2-1.3); CALC OSMOLALITY 287 mosm/kg (275-300); CARBON DIOXIDE 31.6 mmol/L (21.0-32.0); CHLORIDE - SERUM 103 mmol/L (98-107); CKMB 1.3 U/L (0.0-3.6); CREATINE KINASE 29 UL (21-215); CREATININE - SERUM 1.5 mg/dL (0.6-1.3); GLUCOSE 192 mg/dL (74-106); MAGNESIUM - SERUM 1.1 mg/dL (1.8-2.4); POTASSIUM - SERUM 4.5 mmol/L (3.5-5.1); PROTEIN - SERUM 7.3 g/dL (6.4-8.2); SODIUM 139 mmol/L (136-145); THYROID STIMULATING HORMONE 1.18 uIU/mL (0.36-3.74); TROPONIN-I 0.023 ng/mL (0.000-0.060); UREA NITROGEN 27 mg/dL (7-18); eGFR NON AFRICAN AMERICAN 37 mL/min (90-120)
[2019-06-09 13:55] LABS: CALCIUM 14.8 mg/dL (8.5-10.1)
--- NOTE | 2019-06-09 13:55 | NUR ---
CALCIUM 14.8. EDP NOTIFIED.
[2019-06-09 14:03] LABS: INR 1.02 (0.85-1.17); PROTIME 12.9 SECONDS (11.6-15.0)
[2019-06-09 15:19] LABS: APPEARANCE HAZY (CLEAR); BILIRUBIN NEGATIVE (NEGATIVE); COLOR YELLOW (YELLOW); GLUCOSE NEGATIVE (NEGATIVE); KETONE NEGATIVE (NEGATIVE); NITRITE NEGATIVE (NEGATIVE); PROTEIN NEGATIVE (NEGATIVE); SPECIFIC GRAVITY 1.015 (1.005-1.020); UROBILINOGEN NORMAL (NORMAL)
[2019-06-09 15:20] LABS: BACTERIA FEW /hpf (NONE SEEN); RED CELLS - URINE 0-5 /hpf (0-5); WHITE CELLS - URINE RARE /hpf (0-5)
[2019-06-09 19:57] VITALS: BP 163/72; BMI 23.4
[2019-06-09 20:00] VITALS: BP 163/72
[2019-06-10] VITALS: BP 171/79
--- NOTE | 2019-06-10 07:11 | NUR ---
REPORT RECEIVED. UPON ENTERING THE ROOM THE PT SEEMS CONFUSED ABOUT WHERE SHE WAS AND WHAT TIME IT WAS. I REORIENTED HER TO WHERE SHE WAS AND THAT IS WA TIME FOR BREAKFAST. SHE BEGAN EATING BREAKFAST. PT HAS A L AC PIV INFUSING NS @ 75. SHE HAS A LAGUNAS PLACED, DRAINING URINE. RR EVEN AND UNLABORED. NO DISTRESS NOTED. BED LOCKED AND IN LOWEST POSITION. CALL LIGHT WITHIN REACH. WILL CTM.
[2019-06-10 07:49] LABS: BASOPHILS 0.1 % (0-2); HEMATOCRIT 32.5 % (36.0-48.0); HEMOGLOBIN 10.8 g/dL (12-16); IMMATURE GRANULOCYTES 0.3 % (0-5); LYMPHOCYTES 20.1 % (15-50); MCH 31.4 pg (26.0-34.0); MCHC 33.2 g/dL (31.0-37.0); MCV 94.5 fL (80.0-100.0); MEAN PLATELET VOLUME 8.9 fL (7.4-10.4); MONOCYTES 10.2 % (2-11); NEUTROPHILS 68.3 % (40-80); PLATELET COUNT 221 10x3/uL (130-400); RBC 3.44 10x6/uL (4.00-5.40); RDW 12.8 % (11.5-14.5)
[2019-06-10 07:54] LABS: WBC 11.8 10x3/uL (4.8-10.8)
[2019-06-10 08:10] VITALS: BP 150/78
[2019-06-10 08:13] LABS: ALBUMIN 3.3 g/dL (3.4-5.0); ANION GAP 8.6 mmol/L (8-16); BILIRUBIN - TOTAL 0.47 mg/dL (0.2-1.3); CARBON DIOXIDE 31.3 mmol/L (21.0-32.0); CREATININE - SERUM 1.5 mg/dL (0.6-1.3); MAGNESIUM - SERUM 1.1 mg/dL (1.8-2.4); PHOSPHOROUS 3.1 mg/dL (2.5-4.9); POTASSIUM - SERUM 3.9 mmol/L (3.5-5.1); PROTEIN - SERUM 7.2 g/dL (6.4-8.2)
[2019-06-10 09:15] VITALS: BMI 23.4
[2019-06-10 09:39] VITALS: Ht 157.5 cm; Wt 58.1 kg
[2019-06-10 10:03] LABS: % SATURATION 12 % (15-55); IRON 36 ug/dl (35-150); TOTAL IRON BIND CAPACITY 283 ug/dl (260-445); UNSAT IRON BIND CAPACITY 247 ug/dl (150-375)
--- NOTE | 2019-06-10 14:03 | NUR ---
rehab prescreen: this pt has [employer] insurance and will require a prior authorization before being able to make a decision on being admitted. will follow pt progress while waiting to hear back d.w. [facility] insurance company. thank you for this eval. maximo salcedo lpn clinical liasion
--- NOTE | 2019-06-10 15:11 | NUR ---
I have reviewed this patient and I concur with the Shift Assessment completed by the Licensed Practical Nurse today this shift.
[2019-06-10 19:44] VITALS: BP 141/61
--- NOTE | 2019-06-10 20:27 | NUR ---
PATIENT RESTING IN BED AND DENIES NEEDS AT THIS TIME. BED IN LOWEST POSITION AND CALL LIGHT WITHIN REACH. ENCOURAGED THE PATIENT TO CALL IF SHE HAS NEEDS. WILL CONTINUE TO MONITOR.
[2019-06-10 23:19] VITALS: BP 154/71
[2019-06-11 04:33] LABS: BASOPHILS 0.1 % (0-2); EOSINOPHILS 2.3 % (0-7); HEMATOCRIT 31.8 % (36.0-48.0); HEMOGLOBIN 10.5 g/dL (12-16); IMMATURE GRANULOCYTES 0.4 % (0-5); LYMPHOCYTES 18.9 % (15-50); MCH 31.2 pg (26.0-34.0); MCV 94.4 fL (80.0-100.0); MEAN PLATELET VOLUME 8.7 fL (7.4-10.4); MONOCYTES 9.9 % (2-11); NEUTROPHILS 68.4 % (40-80); PLATELET COUNT 199 10x3/uL (130-400); RBC 3.37 10x6/uL (4.00-5.40); RDW 12.7 % (11.5-14.5); WBC 12.2 10x3/uL (4.8-10.8)
[2019-06-11 04:40] LABS: ANION GAP 10.9 mmol/L (8-16); CALCIUM 10.2 mg/dL (8.5-10.1); CARBON DIOXIDE 28.6 mmol/L (21.0-32.0); CREATININE - SERUM 1.7 mg/dL (0.6-1.3); POTASSIUM - SERUM 3.5 mmol/L (3.5-5.1)
[2019-06-11 04:46] VITALS: BP 132/68
--- NOTE | 2019-06-11 07:15 | NUR ---
REPORT RECIEVED. PT SITTING UP IN BED. BREAKFAST SET UP FOR PT. RR EVEN AND UNLABORED. NO DISTRESS NOTED. PT HAS A L AC PIV INFUSING NS @ 150. ÁNGEL ALARM ON AND WORKING. BED IN LOWEST POSITION, CALL LIGHT WITHIN REACH. WILL CTM
[2019-06-11 08:06] VITALS: BP 136/60
[2019-06-11 19:29] VITALS: BP 138/56
--- NOTE | 2019-06-11 19:29 | NUR ---
PATIENT RESTING IN BED AND DENIES NEEDS AT THIS TIME. VSS. BED IN LOWEST POSITION, CALL LIGHT WITHIN REACH, BED ALARM ON. ENCOURAGED THE PATIENT TO CALL IF SHE HAS NEEDS. WILL CONTINUE TO MONITOR.
--- NOTE | 2019-06-11 22:51 | NUR ---
RESITED PATIENT'S IV TO HER RIGHT FA ON THE SECOND ATTEMPT WITH A 22G AFTER LEAKING NOTED TO THE LEFT AC PIV.
[2019-06-11 23:12] VITALS: BP 138/62
[2019-06-12 04:18] VITALS: BP 137/61
[2019-06-12 06:53] LABS: BASOPHILS 0.1 % (0-2); EOSINOPHILS 2.7 % (0-7); HEMATOCRIT 29.7 % (36.0-48.0); HEMOGLOBIN 9.7 g/dL (12-16); IMMATURE GRANULOCYTES 0.6 % (0-5); LYMPHOCYTES 24.5 % (15-50); MCH 30.6 pg (26.0-34.0); MCHC 32.7 g/dL (31.0-37.0); MCV 93.7 fL (80.0-100.0); MEAN PLATELET VOLUME 8.6 fL (7.4-10.4); MONOCYTES 9.4 % (2-11); NEUTROPHILS 62.7 % (40-80); PLATELET COUNT 220 10x3/uL (130-400); RBC 3.17 10x6/uL (4.00-5.40); RDW 12.7 % (11.5-14.5); WBC 10.3 10x3/uL (4.8-10.8)
[2019-06-12 07:02] LABS: CALCIUM 8.1 mg/dL (8.5-10.1); CARBON DIOXIDE 28.1 mmol/L (21.0-32.0); CREATININE - SERUM 1.3 mg/dL (0.6-1.3); POTASSIUM - SERUM 3.1 mmol/L (3.5-5.1)
--- NOTE | 2019-06-12 07:10 | NUR ---
REPORT RECEIVED FROM CLINICAL TEAM MANAGER AND PATIENT CARE ASSUMED. PATIENT LAYING IN BED AWAKE, ALERT. ANSWERS QUESTIONS APPROPRIATELY. PATIENT DENIES ANY NEEDS OR PAIN. WILL CONTINUE WITH PLAN OF CARE. SR UP X 2 BED IN LOW POSITION AND CALL LIGHT IN REACH.
[2019-06-12 08:00] VITALS: BP 132/81
[2019-06-12 11:30] VITALS: BP 136/78
--- NOTE | 2019-06-12 12:03 | MORECARE ---
CASE MANAGEMENT DISCHARGE SUMMARY PATIENT: JASVIR WICK UNIT: [id number] ADM DATE: 06/09/19 AGE: 68 : 50 SEX: F ROOM/BED: D.[facility]6 AUTHOR: AYANNA WHITE PHYSICIAN: REFERRING PHYSICIAN: REED GRAHAM MD DATE OF SERVICE: 06/12/19 Discharge Plan Patient Name: JASVIR WICK Facility: [facility]:[place] : 1950 Planned Disposition: Inpatient Rehab Anticipated Discharge Date: Discharge Date: Expected LOS: Initial Reviewer: [email or web address] Initial Review Date: 06/09/2019 Generated: 06/12/19 1:02 pm Patient Name: JASVIR WICK Page [id number] at 1203 All edits/amendments must be made on the electronic document DICTATION DATE: 06/12/191201 RESOURCE FORESTER: JR 06/12/19 120 RPT#: [id number] DC DATE: STATUS: ADM IN [facility] [address] [place] [address] END OF REPORT
--- NOTE | 2019-06-12 12:10 | MORECARE ---
CASE MANAGEMENT DISCHARGE SUMMARY PATIENT: JASVIR WICK UNIT: [id number] ADM DATE: 06/09/19 AGE: 68 : 50 SEX: F ROOM/BED: D.1206 AUTHOR: AYANNA WHITE PHYSICIAN: REFERRING PHYSICIAN: REED GRAHAM MD DATE OF SERVICE: 06/12/19 Discharge Plan Patient Name: JASVIR WICK Facility: [facility]:[place] : 1950 Planned Disposition: Inpatient Rehab Anticipated Discharge Date: Discharge Date: Expected LOS: Initial Reviewer: [email or web address] Initial Review Date: 06/09/2019 Generated: 06/12/19 1:09 pm DCPIA - Discharge Planning Initial Assessment Updated by [email or web address]: Alisha Key on 06/12/19 12:06 pm * Is the patient Alert and Oriented? Yes * How many steps to enter\exit or inside your home? * PCP Sanchez * Pharmacy [facility] * Preadmission Environment Home with Family * ADLs Independent * Equipment Rolling Walker * Other Equipment WALKER WITH SEAT * List name and contact numbers for known caregivers / representatives who currently or will assist patient after discharge: BENNY WICK - SPOUSE- [phone] * Verbal permission to speak to the caregivers and representatives has been obtained from the patient. Yes * Community resources currently utilized None * Additional services required to return to the preadmission environment? No * Can the patient safely return to the preadmission environment? Yes * Has this patient been hospitalized within the prior 30 days at any hospital? No Last DP export: 06/12/19 11:03 a Patient Name: JASVIR WICK Page [id number] at 1210 All edits/amendments must be made on the electronic document DICTATION DATE: 06/12/191208 [employer]: JR 06/12/191208 RPT#: [id number] DC DATE: STATUS: ADM IN [facility] [address] [place] [address] END OF REPORT
--- NOTE | 2019-06-12 12:17 | MORECARE ---
CASE MANAGEMENT DISCHARGE SUMMARY PATIENT: JASVIR WICK UNIT: [id number] ADM DATE: 06/09/19 AGE: 68 : 50 SEX: F ROOM/BED: D.1206 AUTHOR: CINDY,DOC PHYSICIAN: REFERRING PHYSICIAN: REED GRAHAM MD DATE OF SERVICE: 06/12/19 Discharge Plan Patient Name: JASVIR WICK Facility: [facility]:[place] : 1950 Planned Disposition: Inpatient Rehab Anticipated Discharge Date: Discharge Date: Expected LOS: Initial Reviewer: [email or web address] Initial Review Date: 06/09/2019 Generated: 06/12/19 1:17 pm DCP- Discharge Planning Updated by [email or web address]: Alisha Key on 06/12/19 11:[address] Patient Name: JASVIR WICK Admission Status: ER Accout number: [id number] Admission Date: 06-09-2019 : 1950 Admission Diagnosis: Attending: REED GRAHAM Current LOS: 3 Anticipated DC Date: Planned Disposition: Inpatient Rehab Primary Insurance: [employer] Discharge Planning Comments: CM met with patient and spouse (Davey) at bedside after explaining CM role and obtaining verbal consent. Patient lives at home with her and plans to go to inpatient rehab before discharging home. Patient feels this would be a safe discharge. CM discussed availability / needs of home health and medical equipment. Patient denies any discharge needs at this time. Patient states she will have family drive her home upon discharge. CM will continue to follow and assist as needed with discharge planning / needs. Meat Boner And Slicer: Alisha Key DCPIA - Discharge Planning Initial Assessment Updated by [email or web address]: Alisha Key on 06/12/19 12:06 pm * Is the patient Alert and Oriented? Yes * How many steps to enter\exit or inside your home? * PCP Sanchez * Pharmacy [facility] * Preadmission Environment Home with Family * ADLs Independent * Equipment Rolling Walker * Other Equipment WALKER WITH SEAT * List name and contact numbers for known caregivers / representatives who currently or will assist patient after discharge: DAVEY WICK - SPOUSE- [phone] * Verbal permission to speak to the caregivers and representatives has been obtained from the patient. Yes * Community resources currently utilized None * Additional services required to return to the preadmission environment? No * Can the patient safely return to the preadmission environment? Yes * Has this patient been hospitalized within the prior 30 days at any hospital? No Last DP export: 06/12/19 11:10 a Patient Name: JASVIR WICK Page [phone] at 1217 All edits/amendments must be made on the electronic document DICTATION DATE: 06/12/191216 HELMET HAT SWEATBAND PUNCHER: JR 06/12/197 RPT#: [id number] DC DATE: STATUS: ADM IN [facility] [address] [place] [address] END OF REPORT
--- NOTE | 2019-06-12 13:41 | NUR ---
Rehab Note- PreAuth started with Mercedes/Danielle. Will continue to await determination & follow the patient at this time. Thank you for this referral! Tyra Munoz RN Clinical Liaison, [facility] Rehab
--- NOTE | 2019-06-12 17:02 | MORECARE ---
CASE MANAGEMENT DISCHARGE SUMMARY PATIENT: JASVIR WICK UNIT: [id number] ADM DATE: 06/09/19 AGE: 68 : 50 SEX: F ROOM/BED: D.1206 AUTHOR: CINDY,DOC PHYSICIAN: REFERRING PHYSICIAN: REED GRAHAM MD DATE OF SERVICE: 06/12/19 Discharge Plan Patient Name: JASVIR WICK Facility: [facility]:[place] : 1950 Planned Disposition: Inpatient Rehab Anticipated Discharge Date: Discharge Date: Expected LOS: Initial Reviewer: [id number] Initial Review Date: 06/09/2019 Generated: 06/12/19 6:02 pm Comments DCP- Discharge Planning Updated by [email or web address]: Alisha Key on 06/12/19 3:[address] CM spoke with patient and her sister Marlen Thrasher [phone] regarding discharge planning. Marlen stated that they have already filled out paperwork for nursing home Medicaid. They would like for the patient to go to inpatient rehab if she is eligible but when she is discharged facility all together they are trying to get her placed at [facility]hab then turn into usp care. MARIKA signed. Patients sisters are trying to help assist patient and spouse d/t inability to care for each other. Ari Padilla -sister - [phone]. The sisters will provide clothing and essentials needed for the patient since there is a bug problem in patients home. CM will continue to follow and assist as needed with discharge planning / needs. DCP- Discharge Planning Updated by [id number]: Alisha Key on 06/12/19 11:[address] Patient Name: JASVIR WICK Admission Status: ER Accout number: [id number] Admission Date: 06-09-2019 : 1950 Admission Diagnosis: Attending: REED GRAHAM Current LOS: 3 Anticipated DC Date: Planned Disposition: Inpatient Rehab Primary Insurance: NOVASYSMCR Discharge Planning Comments: CM met with patient and spouse (Davey) at bedside after explaining CM role and obtaining verbal consent. Patient lives at home with her and plans to go to inpatient rehab before discharging home. Patient feels this would be a safe discharge. CM discussed availability / needs of home health and medical equipment. Patient denies any discharge needs at this time. Patient states she will have family drive her home upon discharge. CM will continue to follow and assist as needed with discharge planning / needs. Red Hat Linux Engineer: Alisha Key DCPIA - Discharge Planning Initial Assessment Updated by [email or web address]: Alisha Key on 06/12/19 12:06 pm * Is the patient Alert and Oriented? Yes * How many steps to enter\exit or inside your home? * PCP Sanchez * Pharmacy [facility] * Preadmission Environment Home with Family * ADLs Independent * Equipment Rolling Walker * Other Equipment WALKER WITH SEAT * List name and contact numbers for known caregivers / representatives who currently or will assist patient after discharge: DAVEY WICK - [facility]- [phone] * Verbal permission to speak to the caregivers and representatives has been obtained from the patient. Yes * Community resources currently utilized None * Additional services required to return to the preadmission environment? No * Can the patient safely return to the preadmission environment? Yes * Has this patient been hospitalized within the prior 30 days at any hospital? No Coverage Notice Reviewer: [id number] - Alisha Key Notice Issued Date-Time: 06/12/2019 16:47 Notice Type: Patient Choice Letter Notice Delivered To: Patient Relationship to Patient: Self Flat Surfacer Name: Delivery Method: HAND - Hand Delivered Janna Days: Prior Verbal Notification: Recipient Understood Notice: Yes Recipient Signature: Yes Med Rec Note Co-signed by Attending: Coverage Notice Comment: Last DP export: 06/12/19 11:17 a Patient Name: JASVIR WICK Page [phone] at 1702 All edits/amendments must be made on the electronic document DICTATION DATE: 06/12/191701 CLINICAL TRIAL DATA MANAGER: JR 06/12/191701 RPT#: [id number] DC DATE: STATUS: ADM IN [facility] [address] [place] [address] END OF REPORT
--- NOTE | 2019-06-12 19:09 | NUR ---
PATIENT SITTING UP IN BED AND DENIES NEEDS AT THIS TIME. PATIENT AAO AND SPEECH IS CLEAR. BED IN LOWEST POSITION, CALL LIGHT WITHIN REACH, AND BED ALARM ON. ENCOURAGED THE PATIENT TO CALL IF SHE HAS NEEDS. WILL CONTINUE TO MONITOR.
--- NOTE | 2019-06-12 19:36 | NUR ---
OT NOTE: PT COMPLETED ADL MOB WITH HH A. PT COMPLETED SIT TO STAND WITH HH A. PT COMPLETED GROOMING/HYGIENE TASKS WITH SET UP. PT REQUIRED CUES FOR ATTENTION TO TASK. THANK YOU, FELIX WOOTEN
[2019-06-12 19:43] VITALS: BP 118/61
--- NOTE | 2019-06-12 22:12 | NUR ---
GAVE PATIENT A COMPLETE BED BATH AND CHANGED ALL OF HER LINENS. PATIENT DENIES OTHER NEEDS AT THIS TIME. BED IN LOWEST POSITION, CALL LIGHT WITHIN REACH, AND BED ALARM ON. ENCOURAGED THE PATIENT TO CALL IF SHE HAS NEEDS. WILL CONTINUE TO MONITOR.
[2019-06-12 23:43] VITALS: BP 157/67
[2019-06-13 04:39] VITALS: BP 152/52
[2019-06-13 06:43] LABS: BASOPHILS 0 % (0-2); EOSINOPHILS 2.2 % (0-7); HEMATOCRIT 29.3 % (36.0-48.0); HEMOGLOBIN 9.7 g/dL (12-16); IMMATURE GRANULOCYTES 0.7 % (0-5); LYMPHOCYTES 20.2 % (15-50); MCH 30.9 pg (26.0-34.0); MCHC 33.1 g/dL (31.0-37.0); MCV 93.3 fL (80.0-100.0); MEAN PLATELET VOLUME 8.5 fL (7.4-10.4); MONOCYTES 11.5 % (2-11); NEUTROPHILS 65.4 % (40-80); PLATELET COUNT 217 10x3/uL (130-400); RBC 3.14 10x6/uL (4.00-5.40); RDW 12.9 % (11.5-14.5); WBC 9.5 10x3/uL (4.8-10.8)
[2019-06-13 07:04] LABS: ANION GAP 14.4 mmol/L (8-16); CARBON DIOXIDE 23.9 mmol/L (21.0-32.0); CREATININE - SERUM 1.2 mg/dL (0.6-1.3)
[2019-06-13 07:09] LABS: POTASSIUM - SERUM 3.3 mmol/L (3.5-5.1)
--- NOTE | 2019-06-13 07:42 | NUR ---
ROUNDING DONE WITH PAITENT SITTING UP IN BED AT 45 DEGREES. GLASSES ON, NO TEETH. ON HEART MONITOR. ON ROOM AIR. RIGHT WIRST PIV SEEN WITH NS INFUSING AT 150 CC/HR. LAGUNAS CATH PATENT WITH CLEAR YELLOW URINE. ON EP, K+ IS 3.3. WILL COVER WITH ORAL SUPPLEMENTS. ÁNGEL MAT ALARM ON AND IN USE.
[2019-06-13 07:48] VITALS: BP 145/49
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
[2019-06-13 11:28] VITALS: BP 138/47
--- NOTE | 2019-06-13 13:00 | NUR ---
OT NOTE: PT PERFORMED VERY WELL TODAY. BED MOB WITH MIN ASSIST; A AND O X 3; MEMORY IMPROVED. AMB GREATER THAN 150 FT WITH RW, IV, AND MIN ASSIST. TRANSFERS WITH MIN ASSIST. SIMPLE GROOMING WITH SBA; TOILETING WITH MIN ASSIST; ABLE TO AUDRA AND DOFF SOCKS WITH MIN/MOD ASSIST; FEEDING WITH SET UP; WANTED TO SIT UP IN CHAIR VS BED. BERNABE HIRSCH, OTR/L
--- NOTE | 2019-06-13 13:43 | NUR ---
PATIENT IS REQUESTING TO GO BACK TO BED, BENNY WITH THERAPY IS PAGED. AWAITING CALL BACK.
--- NOTE | 2019-06-13 13:51 | NUR ---
RE-DRAW OF POTAASIUM WITH RESUTLS OF 4.0. I ASSISTED PATIENT BACK TO BED, ÁNGEL MAT ALARM ON AND IN USE.
[2019-06-13 15:50] VITALS: BP 130/67
--- NOTE | 2019-06-13 16:00 | NUR ---
POC GLUCOSE IS 130. NO COVERAGE PER SLIDING SCALE. REQUESTS SNACK, UNSWEETNED APPLESAUCE GIVEN WE HAVE NO ZAIDA CRACKERS.
--- NOTE | 2019-06-13 18:48 | NUR ---
PATIENT RESTING IN BED WITH GUEST AT BEDSIDE. NO S/S OF DISTRESS. PATIENT DENIES NEEDS AT THIS TIME. BED IN LOWEST POSITION AND CALL LIGHT WITHIN REACH. ENCOURAGED THE PATIENT TO CALL IF SHE HAS NEEDS. WILL CONTINUE TO MONITOR.
[2019-06-13 19:54] VITALS: BP 124/55
--- NOTE | 2019-06-13 22:59 | NUR ---
TELE MONITOR STATED THE PATIENT HAD A RUN OF 10 PVC'S. PATIENT ALERT AND ORIENTED AT THIS TIME SITTING UP IN BED COLORING.
[2019-06-14 00:33] VITALS: BP 154/63
[2019-06-14 04:24] VITALS: BP 144/69
[2019-06-14 06:08] LABS: HEMATOCRIT 32.5 % (36.0-48.0); HEMOGLOBIN 10.5 g/dL (12-16); LYMPHOCYTES 29.1 % (15-50); MCH 32.8 pg (26.0-34.0); MCHC 32.3 g/dL (31.0-37.0); MEAN PLATELET VOLUME 8.1 fL (7.4-10.4); NEUTROPHILS 60.1 % (40-80); RDW 12.4 % (11.5-14.5); WBC 10.2 10x3/uL (4.8-10.8)
[2019-06-14 06:25] LABS: MCV 101.6 fL (80.0-100.0); PLATELET COUNT 295 10x3/uL (130-400)
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
[2019-06-14 07:27] LABS: CALC OSMOLALITY 293 mosm/kg (275-300); CALCIUM 7.3 mg/dL (8.5-10.1); CARBON DIOXIDE 19.5 mmol/L (21.0-32.0); CHLORIDE - SERUM 110 mmol/L (98-107); GLUCOSE 124 mg/dL (74-106); POTASSIUM - SERUM 4.3 mmol/L (3.5-5.1); SODIUM 145 mmol/L (136-145); UREA NITROGEN 24 mg/dL (7-18); eGFR NON AFRICAN AMERICAN 75 mL/min (90-120)
[2019-06-14 07:30] LABS: CREATININE - SERUM 0.8 mg/dL (0.6-1.3)
--- NOTE | 2019-06-14 07:33 | NUR ---
EP RESULTS ARE BACK WITH K+ 4.3. NO NEED FOR ORAL MEDICATIONS.
[2019-06-14 08:35] VITALS: BP 135/52
--- NOTE | 2019-06-14 10:43 | NUR ---
SITTING UP IN THE BED WATCHING "MERINO IS RIGHT". DENIES NEEDS.
[2019-06-14 11:26] VITALS: BP 124/72
[2019-06-14] MEDS ORDERED: DEPAKOTE500 MG PO (12:22)
[2019-06-14] MEDS ORDERED: ZYPREXA2.5 MG PO (12:22)
--- NOTE | 2019-06-14 13:34 | NUR ---
ASSISTED TO CHAIR FOR COMPLETE BED LINEN CHANGE AND BATH. GRANDDAUGHTER IS IN ROOM AT THIS TIME. ÁNGEL MAT ALARM IS ON IN CHAIR.
--- NOTE | 2019-06-14 14:11 | NUR ---
OT NOTE: PT DOING VERY WELL; BED MOB WITH CGA; FUNCTIONAL TRANSFERS WITH CGA; SIMPLE GROOMING WITH SBA; TOILETING WITH CGA. IN ROOM AMBULATION WITH CGA AND WALKER. BERNABE HIRSCH, OTR/L
--- NOTE | 2019-06-14 14:23 | NUR ---
OT NOTE: PT COMPLETED SIT TO STAND WITH CGA. PT COMPLETED ADL MOB WITH CGA. PT COMPLETED HAIR GROOMING WITH SET UP. PT COMPLETED BUE AROM AXS. PT IS COOPERATIVE AND EXHIBITES INCREASED FUNCTIONAL I WITH DYNAMIC ACTIVITIES. THANK YOU,FELIX WOOTEN
--- NOTE | 2019-06-14 14:45 | MORECARE ---
CASE MANAGEMENT DISCHARGE SUMMARY PATIENT: JASVIR WICK UNIT: [id number] ADM DATE: 06/09/19 AGE: 68 : 50 SEX: F ROOM/BED: D.1206 AUTHOR: CINDY,DOC PHYSICIAN: REFERRING PHYSICIAN: REED GRAHAM MD DATE OF SERVICE: 06/14/19 Discharge Plan Patient Name: JASVIR WICK Facility: [facility]:[place] : 1950 Planned Disposition: Inpatient Rehab Anticipated Discharge Date: Discharge Date: Expected LOS: Initial Reviewer: [id number] Initial Review Date: 06/09/2019 Generated: 06/14/19 3:45 pm Comments DCP- Discharge Planning Updated by [email or web address]: Alisha Key on 06/14/19 1:[address] Patient Name: JASVIR WICK Encounter No: [id number] : 1950 Primary Insurance: NOVGoblinworksCR Anticipated DC Date: Planned Disposition: Inpatient Rehab External Planned Provider: : D/C IMM SIGNED 06/14/19 @1359 . CM NOTIFIED SISTER MARLEN ABOUT PLAN TO TRANSFER TO INPATIENT REHAB TODAY DCP follow-up note: Patient and family in agreement with discharge plan. No changes to plan. Case management will follow and assist as needed. Alisha Key DCP- Discharge Planning Updated by [id number]: Alisha Key on 06/12/19 3:[address] CM spoke with patient and her sister Marlen Scanlonss [phone] regarding discharge planning. Marlen stated that they have already filled out paperwork for group home Medicaid. They would like for the patient to go to inpatient rehab if she is eligible but when she is discharged facility all together they are trying to get her placed at [facility] for rehab then turn into longterm care. MARIKA signed. Patients sisters are trying to help assist patient and spouse d/t inability to care for each other. Ari Valerie -sister - [phone]. The sisters will provide clothing and essentials needed for the patient since there is a bug problem in patients home. CM will continue to follow and assist as needed with discharge planning / needs. DCP- Discharge Planning Updated by [email or web address]: Alisha Key on 06/12/19 11:[address] Patient Name: JASVIR WICK Admission Status: ER Accout number: [id number] Admission Date: 06-09-2019 : 1950 Admission Diagnosis: Attending: REED GRAHAM Current LOS: 3 Anticipated DC Date: Planned Disposition: Inpatient Rehab Primary Insurance: [employer] Discharge Planning Comments: CM met with patient and spouse (Davey) at bedside after explaining CM role and obtaining verbal consent. Patient lives at home with her and plans to go to inpatient rehab before discharging home. Patient feels this would be a safe discharge. CM discussed availability / needs of home health and medical equipment. Patient denies any discharge needs at this time. Patient states she will have family drive her home upon discharge. CM will continue to follow and assist as needed with discharge planning / needs. Investigation Clerk: Alisha Key DCPIA - Discharge Planning Initial Assessment Updated by [email or web address]: Alisha Key on 06/12/19 12:06 pm * Is the patient Alert and Oriented? Yes * How many steps to enter\exit or inside your home? * PCP Sanchez * Pharmacy [facility] * Preadmission Environment Home with Family * ADLs Independent * Equipment Rolling Walker * Other Equipment WALKER WITH SEAT * List name and contact numbers for known caregivers / representatives who currently or will assist patient after discharge: DAVEY WICK - SPOUSE- [phone] * Verbal permission to speak to the caregivers and representatives has been obtained from the patient. Yes * Community resources currently utilized None * Additional services required to return to the preadmission environment? No * Can the patient safely return to the preadmission environment? Yes * Has this patient been hospitalized within the prior 30 days at any hospital? No Coverage Notice Reviewer: [email or web address] Seven Key Notice Issued Date-Time: 06/12/2019 16:47 Notice Type: Patient Choice Letter Notice Delivered To: Patient Relationship to Patient: Self Import/Export Clerk Name: Delivery Method: HAND - Hand Delivered Janna Days: Prior Verbal Notification: Recipient Understood Notice: Yes Recipient Signature: Yes Med Rec Note Co-signed by Attending: Coverage Notice Comment: Reviewer: [id number] Seven Key Notice Issued Date-Time: 06/14/2019 13:59 Notice Type: IM Discharge Notice Notice Delivered To: Patient Relationship to Patient: Self Import/Export Clerk Name: Delivery Method: HAND - Hand Delivered Janna Days: Prior Verbal Notification: Recipient Understood Notice: Yes Recipient Signature: Yes Med Rec Note Co-signed by Attending: Coverage Notice Comment: Last DP export: 06/12/19 4:02 p Patient Name: JASVIR WICK Page [id number] at 1445 All edits/amendments must be made on the electronic document DICTATION DATE: 06/14/19 1445 POINTER MACHINE OPERATOR: JR 06/14/19 1445 RPT#: [id number] DC DATE: STATUS: ADM IN [facility] [address] [place] [address] END OF REPORT
[2019-06-14 15:16] VITALS: BP 113/47
--- NOTE | 2019-06-14 15:30 | CN ---
PATIENT NAME:JASVIR WICK MEDICAL RECORD: [id number] : [birth year] LOCATION:D.M3 D.1206 ADMIT DATE: 06/09/19 ACCOUNT: [id number] CONSULTING PHYSICIAN: PATRICIA FLORES MD REFERRING PHYSICIAN: REED GRAHAM MD DATE OF CONSULTATION: 06/13/2019 IDENTIFYING DATA: The patient is 68 years old and she was admitted to the hospital on a voluntary basis secondary to confusion and having fallen. CHIEF COMPLAINT: None. HISTORY OF PRESENT ILLNESS: The patient has hypertension, diabetes, gastroesophageal reflux disease and was seen in her primary care physician's office. Apparently, she had some vertigo and a bit confused. She was referred to the hospital and admitted secondary to a toxic encephalopathy. The patient also had an acute kidney injury. She is significantly improved since being hospitalized, but is now off her psychoactive medications. She does have a legitimate and convincing history of bipolar disorder and does need to be on medications. Her mental status examination is significant for some confusion and memory loss, but no acute dangerousness. She is actually oriented to person, place and situation, but is mistaken about the date. ASSESSMENT: Bipolar disorder. PLAN: The patient should take a low dose of Zyprexa to assist with her thought disorganization. I prescribed 2.5 mg at bedtime. In addition to this, I would recommend Depakote at a dose of 500 mg twice daily. I would aim for a Depakote level of approximately 75. I see no evidence of acute dangerousness. Hopefully, she will continue to improve behaviorally. TRANSINT:[id number] Voice Confirmation ID: [id number] DOCUMENT ID: [id number] PATRICIA FLORES MD at 1530 CC: [id number] DICTATION DATE: 06/13/19 1251 MINI LAB OPERATOR: 06/13/19 1304 ADM IN [facility] [address] [place] [address]
--- NOTE | 2019-06-14 15:49 | NUR ---
ASSSITED BACK TO BED, ÁNGEL MAT ALARM IS ON AND IN USE. ROOM NUMBER FROM REHAB JUST CALLED TO ME. AWAITING PAPERWORK.
--- NOTE | 2019-06-14 15:58 | NUR ---
REPORT CALLED TO GAMAL KEITH IN REHAB.
--- NOTE | 2019-06-14 16:21 | NUR ---
REPORT CALLED TO GAMAL KEITH IN REHAB. SALINE LOCK REMOVED WITH TIP INTACT. HEART MONITOR TAKEN OFF AND WILL BE TURNED IN. DISCHARGED TO REHAB VIA WHEELCHAIR AND LAGUNAS CATH.
--- NOTE | 2019-06-14 18:08 | MORECARE ---
CASE MANAGEMENT DISCHARGE SUMMARY PATIENT: JASVIR WICK UNIT: [id number] ADM DATE: 06/09/19 AGE: 68 : 50 SEX: F ROOM/BED: D.1206 AUTHOR: CINDY,DOC PHYSICIAN: REFERRING PHYSICIAN: REED GRAHAM MD DATE OF SERVICE: 06/14/19 Discharge Plan Patient Name: JASVIR WICK Facility: [facility]:[place] : 1950 Planned Disposition: Inpatient Rehab Anticipated Discharge Date: Discharge Date: 06/14/2019 Expected LOS: Initial Reviewer: [email or web address] Initial Review Date: 06/09/2019 Generated: 06/14/19 7:08 pm DCP- Discharge Planning Updated by [id number]: Alisha Key on 06/14/19 1:[address] Patient Name: JASVIR WICK Encounter No: [id number] : 1950 Primary Insurance: NOVExtrapriseCR Anticipated DC Date: Planned Disposition: Inpatient Rehab External Planned Provider: : D/C IMM SIGNED 06/14/19 @1359 . CM NOTIFIED SISTER MARLEN ABOUT PLAN TO TRANSFER TO INPATIENT REHAB TODAY DCP follow-up note: Patient and family in agreement with discharge plan. No changes to plan. Case management will follow and assist as needed. Alisha Key DCP- Discharge Planning Updated by [id number]: Alisha Key on 06/12/19 3:[address] CM spoke with patient and her sister Marlen Scanlonss [phone] regarding discharge planning. Marlen stated that they have already filled out paperwork for long-term Medicaid. They would like for the patient to go to inpatient rehab if she is eligible but when she is discharged facility all together they are trying to get her placed at [facility]hab then turn into [facility] care. MARIKA signed. Patients sisters are trying to help assist patient and spouse d/t inability to care for each other. Ari Valerie -sister - [phone]. The sisters will provide clothing and essentials needed for the patient since there is a bug problem in patients home. CM will continue to follow and assist as needed with discharge planning / needs. DCP- Discharge Planning Updated by [email or web address]: Alisha Key on 06/12/19 11:[address] Patient Name: JASVIR WICK Admission Status: ER Accout number: [id number] Admission Date: 06-09-2019 : 1950 Admission Diagnosis: Attending: REED GRAHAM Current LOS: 3 Anticipated DC Date: Planned Disposition: Inpatient Rehab Primary Insurance: [employer] Discharge Planning Comments: CM met with patient and spouse (Davey) at bedside after explaining CM role and obtaining verbal consent. Patient lives at home with her and plans to go to inpatient rehab before discharging home. Patient feels this would be a safe discharge. CM discussed availability / needs of home health and medical equipment. Patient denies any discharge needs at this time. Patient states she will have family drive her home upon discharge. CM will continue to follow and assist as needed with discharge planning / needs. Schedule Analyst: Alisha Key DCPIA - Discharge Planning Initial Assessment Updated by [id number]: Alisha Key on 06/12/19 12:06 pm * Is the patient Alert and Oriented? Yes * How many steps to enter\exit or inside your home? * PCP Sanchez * Pharmacy [facility] * Preadmission Environment Home with Family * ADLs Independent * Equipment Rolling Walker * Other Equipment WALKER WITH SEAT * List name and contact numbers for known caregivers / representatives who currently or will assist patient after discharge: DAVEY WICK - SPOUSE- [phone] * Verbal permission to speak to the caregivers and representatives has been obtained from the patient. Yes * Community resources currently utilized None * Additional services required to return to the preadmission environment? No * Can the patient safely return to the preadmission environment? Yes * Has this patient been hospitalized within the prior 30 days at any hospital? No Coverage Notice Reviewer: [id number] Seven Key Notice Issued Date-Time: 06/12/2019 16:47 Notice Type: Patient Choice Letter Notice Delivered To: Patient Relationship to Patient: Self Nut Process Helper Name: Delivery Method: HAND - Hand Delivered Janna Days: Prior Verbal Notification: Recipient Understood Notice: Yes Recipient Signature: Yes Med Rec Note Co-signed by Attending: Coverage Notice Comment: Reviewer: [id number] Seven Key Notice Issued Date-Time: 06/14/2019 13:59 Notice Type: IM Discharge Notice Notice Delivered To: Patient Relationship to Patient: Self Nut Process Helper Name: Delivery Method: HAND - Hand Delivered Janna Days: Prior Verbal Notification: Recipient Understood Notice: Yes Recipient Signature: Yes Med Rec Note Co-signed by Attending: Coverage Notice Comment: Last DP export: 06/14/19 1:45 p Patient Name: JASVIR WICK Page [id number] at 1808 All edits/amendments must be made on the electronic document DICTATION DATE: 06/14/191807 TELEPHONE SALES REPRESENTATIVE: JR 06/14/191807 RPT#: [id number] DC DATE:06/14/19 STATUS: DIS IN [facility] [address] [place] [address] END OF REPORT
== END 2019-06-14 16:23 | DRG 640 ==
LOC: D.ER 12:45 → D.M3 17:11
PROVIDERS: Family Medicine; ADMIT Internal Medicine Nephrology; ATTEND Internal Medicine Nephrology
DX: E83.52 Hypercalcemia (principal); G93.41 Metabolic encephalopathy; N39.0 Urinary tract infection, site not specified; N17.9 Acute kidney failure, unspecified; E83.42 Hypomagnesemia; D50.9 Iron deficiency anemia, unspecified; I10 Essential (primary) hypertension; E78.5 Hyperlipidemia, unspecified; E11.9 Type 2 diabetes mellitus without complications; F31.9 Bipolar disorder, unspecified; E20.9 Hypoparathyroidism, unspecified

== ENCOUNTER 2019-06-14 16:10 | Inpatient (IN) | payer MEDICARE ==
[~2019-06-14] VITALS: Ht 157.5 cm; Wt 52.2 kg
--- NOTE | 2019-06-14 16:00 | NUR ---
RECIEVED BY WC TO ROOM 1116Y;ORIENTED TO ROOM AND SURROUNDINGS;AND CL.
[~2019-06-14 16:10] MED LIST changes: +DEPAKOTE500 MG PO; +ZYPREXA2.5 MG PO
--- NOTE | 2019-06-14 19:20 | NUR ---
PT LYING IN BED. CL IN REACH. A/O X4. RESP EVEN AND UNLABORED. BED IN LOW SIDE RAILS X2. LAGUNAS INTACT. BLADDER TRAINING IN PROCESS. PT ALERTS NURSE WHEN SHE FEELS THE NEED TO URINATE. WCTM
[2019-06-14 20:01] VITALS: BP 112/53; BMI 21.0
[2019-06-14 21:59] VITALS: BP 112/53
--- NOTE | 2019-06-15 02:05 | NUR ---
I have reviewed this patient and I concur with the Shift Assessment completed by the Licensed Practical Nurse today this shift.
--- NOTE | 2019-06-15 06:24 | NUR ---
REMOVED 9ML SALINE FROM CATH BULB. REMOVED LAGUNAS CATH TIP INTACT. PERFORMED MADALYN CARE. PT TOLERATED WELL.
[2019-06-15 06:29] LABS: APPEARANCE CLEAR (CLEAR); BILIRUBIN NEGATIVE (NEGATIVE); COLOR STRAW (YELLOW); EPITHELIAL CELLS RARE /hpf (0-5); GLUCOSE NEGATIVE (NEGATIVE); KETONE NEGATIVE (NEGATIVE); NITRITE NEGATIVE (NEGATIVE); PROTEIN NEGATIVE (NEGATIVE); RED CELLS - URINE 0-5 /hpf (0-5); SPECIFIC GRAVITY 1.015 (1.005-1.020); UROBILINOGEN NORMAL (NORMAL); WHITE CELLS - URINE 0-5 /hpf (NEGATIVE)
[2019-06-15 06:45] LABS: BASOPHILS 0.1 % (0-2); EOSINOPHILS 2.3 % (0-7); HEMATOCRIT 29.7 % (36.0-48.0); HEMOGLOBIN 9.7 g/dL (12-16); IMMATURE GRANULOCYTES 1.6 % (0-5); LYMPHOCYTES 27.5 % (15-50); MCHC 32.7 g/dL (31.0-37.0); MEAN PLATELET VOLUME 8.4 fL (7.4-10.4); MONOCYTES 9.3 % (2-11); NEUTROPHILS 59.2 % (40-80); PLATELET COUNT 255 10x3/uL (130-400); RBC 3.13 10x6/uL (4.00-5.40); RDW 13.4 % (11.5-14.5); WBC 11.3 10x3/uL (4.8-10.8)
[2019-06-15 06:46] LABS: ANION GAP 14.8 mmol/L (8-16); CALCIUM 7.4 mg/dL (8.5-10.1); CARBON DIOXIDE 22.4 mmol/L (21.0-32.0); CREATININE - SERUM 0.9 mg/dL (0.6-1.3); POTASSIUM - SERUM 4.2 mmol/L (3.5-5.1)
[2019-06-15 06:48] LABS: MCV 94.9 fL (80.0-100.0)
[2019-06-15 08:00] VITALS: BP 142/71
[2019-06-15 09:25] VITALS: BMI 21.0
--- NOTE | 2019-06-15 13:17 | NUR ---
LAYING IN BED RESTING QUIETLY, EYES CLOSED. CALL LIGHT IN REACH
--- NOTE | 2019-06-15 16:45 | NUR ---
PATIENT ADMITTED TO REHAB FROM ACUTE FLOOR. DISCHARGE PLANS ARE UNCERTAIN AT THIS TIME. HER PCP IS DR. CARPENTER AND DME AT HOME IS A ROLLING WALKER. HER SISTERS ARE IN THE PROCESS OF APPLYING FOR MEDICAID AND WANTS HER TO DISCHARGE TO THE [facility]. WILL CONTINUE TO FOLLOW WITH PATIENT.
--- NOTE | 2019-06-15 19:34 | NUR ---
GREETED PATIENT AND INTRODUCED MYSELF HER NURSE. PATIENT IS LAYING IN BED WATCHING TV. RESPIRATIONS EVEN. NO S/S OF DISTRESS. NO PAIN STATED AT THIS TIME. CALL LIGHT IN REACH.
[2019-06-15 20:34] VITALS: BP 136/64
--- NOTE | 2019-06-16 01:35 | NUR ---
PT. ASLEEP WITH EYES CLOSED. RESPIRATIONS EVEN. NO S/S OF DISTRESS. SR UP X 2. BED IN LOWEST POSITION. CALL LIGHT IN REACH.
[2019-06-16 07:51] LABS: BASOPHILS 0.1 % (0-2); EOSINOPHILS 1.9 % (0-7); HEMATOCRIT 31.8 % (36.0-48.0); HEMOGLOBIN 10.2 g/dL (12-16); IMMATURE GRANULOCYTES 2.1 % (0-5); LYMPHOCYTES 28.5 % (15-50); MCH 31.3 pg (26.0-34.0); MCHC 32.1 g/dL (31.0-37.0); MEAN PLATELET VOLUME 8.4 fL (7.4-10.4); MONOCYTES 8.5 % (2-11); NEUTROPHILS 58.9 % (40-80); PLATELET COUNT 282 10x3/uL (130-400); RBC 3.26 10x6/uL (4.00-5.40); RDW 13.6 % (11.5-14.5); WBC 11.8 10x3/uL (4.8-10.8)
[2019-06-16 08:05] LABS: ANION GAP 17.2 mmol/L (8-16); CALCIUM 8.1 mg/dL (8.5-10.1); CARBON DIOXIDE 21.1 mmol/L (21.0-32.0); POTASSIUM - SERUM 4.3 mmol/L (3.5-5.1)
[2019-06-16 08:06] LABS: MCV 97.5 fL (80.0-100.0)
[2019-06-16 08:36] VITALS: BP 148/66
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
[2019-06-16 18:29] VITALS: BP 144/55
--- NOTE | 2019-06-16 18:50 | NUR ---
GREETED PATIENT AND INTRODUCED MYSELF HIS NURSE. PATIENT LAYING IN BED WATCHING TV. DENIES ANY NEEDS AT THIS TIME. RESPIRATIONS EVEN. NO S/S OF DISTRESS. CALL LIGHT IN REACH.
--- NOTE | 2019-06-17 03:51 | NUR ---
PATIENT RESTING QUIETLY WITH EYES CLOSED. RESPIRATIONS EVEN. NO S/S OF DISTRESS. CALL LIGHT IN REACH.
[2019-06-17 08:00] VITALS: BP 148/65
--- NOTE | 2019-06-17 08:00 | NUR ---
SHIFT ASSMT COMPLETED.DENIES NEEDS.UP OOB FOR BREAKFAST.CL IN REACH.
--- NOTE | 2019-06-17 12:00 | NUR ---
UP IN WC.LUNCH GIVEN.
[2019-06-17 19:57] VITALS: BP 149/54
--- NOTE | 2019-06-18 01:50 | NUR ---
I have reviewed this patient and I concur with the Shift Assessment completed by the Licensed Practical Nurse today this shift.
--- NOTE | 2019-06-18 03:35 | NUR ---
PATIENT EYES CLOSED. RESPIRATIONS 18 & EVEN. BED LOW. ALARM ON. CALL LIGHT WITHIN REACH. WILL CONTINUE TO MONITOR.
--- NOTE | 2019-06-18 08:00 | NUR ---
SHIFT ASSMT COMPLETED.
[2019-06-18 08:09] VITALS: BP 137/54
--- NOTE | 2019-06-18 16:00 | NUR ---
CONTINUE TO MONITOR
[2019-06-18 19:57] VITALS: BP 136/54
--- NOTE | 2019-06-18 20:00 | NUR ---
PATIENT RECEIVED SITTING UP IN BED WATCHING TV. ASSESSMENT & VITAL SIGNS DONE. NO C/O PAIN OR DISTRESS. BED LOW. ALARM ON. CALL LIGHT WITHIN REACH. WILL CONTINUE TO MONITOR.
--- NOTE | 2019-06-19 01:22 | NUR ---
I have reviewed this patient and I concur with the Shift Assessment completed by the Licensed Practical Nurse today this shift.
[2019-06-19 07:39] LABS: BASOPHILS 0.1 % (0-2); EOSINOPHILS 2.3 % (0-7); HEMATOCRIT 32.1 % (36.0-48.0); HEMOGLOBIN 10.2 g/dL (12-16); MCH 30.9 pg (26.0-34.0); MCHC 31.8 g/dL (31.0-37.0); MCV 97.3 fL (80.0-100.0); MEAN PLATELET VOLUME 8.5 fL (7.4-10.4); MONOCYTES 9.1 % (2-11); NEUTROPHILS 49.5 % (40-80); PLATELET COUNT 275 10x3/uL (130-400); RDW 13.6 % (11.5-14.5); WBC 12.1 10x3/uL (4.8-10.8)
[2019-06-19 08:00] VITALS: BP 139/46
[2019-06-19 08:05] LABS: CALCIUM 9.3 mg/dL (8.5-10.1); CARBON DIOXIDE 22.2 mmol/L (21.0-32.0); CHLORIDE - SERUM 108 mmol/L (98-107); CREATININE - SERUM 0.8 mg/dL (0.6-1.3); UREA NITROGEN 35 mg/dL (7-18); eGFR NON AFRICAN AMERICAN 75 mL/min (90-120)
[2019-06-19 08:16] LABS: CALC OSMOLALITY 294 mosm/kg (275-300); POTASSIUM - SERUM 4.7 mmol/L (3.5-5.1); SODIUM 143 mmol/L (136-145)
[2019-06-19 08:18] LABS: GLUCOSE 126 mg/dL (74-106)
--- NOTE | 2019-06-19 10:39 | NUR ---
SITTING IN THERAPY GYM WORKING WITH THERAPIST.
--- NOTE | 2019-06-19 14:58 | NUR ---
SITTING IN WC IN ROOM WATCHING TV. DENIES NEEDS OR C/O AT THIS TIME. BRUISED RT FLANK AND BACK NOTED. CALL LIGHT IN REACH
[2019-06-19 15:25] VITALS: Ht 157.5 cm; Wt 52.2 kg
--- NOTE | 2019-06-19 19:40 | NUR ---
ASSISTED TO AND FROM BATHROOM. BACK IN BED. CL IN REACH. DENIES FURTHER NEEDS. RESP EVEN AND UNLABORED. A/O X4. BED IN LOW SIDE RAILS X2. WILL CONTINUE TO MONITOR.
[2019-06-19 21:47] VITALS: BP 110/57
--- NOTE | 2019-06-20 01:43 | NUR ---
QUIET HOURS. PT LYING IN BED EYES CLOSED RESTING QUIETLY
--- NOTE | 2019-06-20 02:45 | NUR ---
ASSISTED TO AND FROM BATHROOM. BACK IN BED. CL IN REACH. BED IN LOW SIDE RAILS X2. WCTM DENIES FURTHER NEEDS.
--- NOTE | 2019-06-20 04:16 | NUR ---
I have reviewed this patient and I concur with the Shift Assessment completed by the Licensed Practical Nurse today this shift.
--- NOTE | 2019-06-20 05:58 | NUR ---
FSBS 81. WILL GIVE GLUCOTROL CLOSER TO TIME WHEN BREAKFAST IS SERVED.
--- NOTE | 2019-06-20 07:05 | NUR ---
RESTING QUIETLY IN BED. EYES CLOSED. NO S/S DISTRESS. BED IN LOWEST POSITION, SIDE RAILS UP X2. CALL LIGHT IN REACH
[2019-06-20 08:00] VITALS: BP 151/88
--- NOTE | 2019-06-20 12:40 | NUR ---
SITTING UP IN WC IN ROOM EATING LUNCH. VISITING. SHE WALKED WITH MIN ASST TO BATHROOM FROM BED. IS CONT OF BOWEL AND BLADDER.
--- NOTE | 2019-06-20 17:44 | NUR ---
SITTING ON SIDE OF BED EATING SUPPER. DENIES NEEDS. CALL LIGHT IN REACH
--- NOTE | 2019-06-20 19:20 | NUR ---
ASSISTED TO AND FROM BATHROOM. CL IN REACH. DENIES NEEDS OR PAIN AT THIS TIME. BED IN LOW SIDE RAILS X2. PT BACK IN BED. A/O X4. RESP EVEN AND UNLABORED. LUNGS CLEAR. BOWEL ACTIVE X4. WCTM
[2019-06-20 21:29] VITALS: BP 133/61
--- NOTE | 2019-06-21 01:37 | NUR ---
I have reviewed this patient and I concur with the Shift Assessment completed by the Licensed Practical Nurse today this shift.
[2019-06-21 07:39] LABS: BASOPHILS 0.2 % (0-2); EOSINOPHILS 1.9 % (0-7); HEMATOCRIT 33.9 % (36.0-48.0); HEMOGLOBIN 10.8 g/dL (12-16); IMMATURE GRANULOCYTES 6.5 % (0-5); LYMPHOCYTES 32.6 % (15-50); MCHC 31.9 g/dL (31.0-37.0); MCV 97.4 fL (80.0-100.0); MEAN PLATELET VOLUME 8.7 fL (7.4-10.4); MONOCYTES 8.1 % (2-11); NEUTROPHILS 50.7 % (40-80); PLATELET COUNT 298 10x3/uL (130-400); RBC 3.48 10x6/uL (4.00-5.40); RDW 13.6 % (11.5-14.5); WBC 12.3 10x3/uL (4.8-10.8)
[2019-06-21 07:51] LABS: CALC OSMOLALITY 292 mosm/kg (275-300); CARBON DIOXIDE 26.3 mmol/L (21.0-32.0); CHLORIDE - SERUM 107 mmol/L (98-107); CREATININE - SERUM 0.8 mg/dL (0.6-1.3); GLUCOSE 114 mg/dL (74-106); SODIUM 142 mmol/L (136-145); UREA NITROGEN 38 mg/dL (7-18); eGFR NON AFRICAN AMERICAN 75 mL/min (90-120)
--- NOTE | 2019-06-21 08:00 | NUR ---
shift assmt completed.
[2019-06-21 08:04] VITALS: BP 136/68
--- NOTE | 2019-06-21 12:00 | NUR ---
sitting up in bed eating lunch
--- NOTE | 2019-06-21 16:00 | NUR ---
RESTING QUIETLY.CL IN REACH.
--- NOTE | 2019-06-21 19:17 | NUR ---
PATIENT RECEIVED SITTING UP IN CHAIR VISITING FRIEND. VITAL SIGNS & ASSESSMENT DONE. NO C/O PAIN OR DISTRESS. CALL LIGHT WITHIN REACH. WILL CONTINUE TO MONITOR.
[2019-06-21 21:17] VITALS: BP 127/69
--- NOTE | 2019-06-22 04:32 | NUR ---
PATIENT EYES CLOSED. RESPIRATIONS 18 & EVEN. BED LOW. ALARM ON. CALL LIGHT WITHIN REACH. WILL CONTINUE TO MONITOR.
--- NOTE | 2019-06-22 04:59 | NUR ---
I have reviewed this patient and I concur with the Shift Assessment completed by the Licensed Practical Nurse today this shift.
[2019-06-22 08:00] VITALS: BP 127/58
--- NOTE | 2019-06-22 08:00 | NUR ---
SHIFT ASSMT COMPLETED.
--- NOTE | 2019-06-22 10:02 | NUR ---
NUTRITION F/U CHART REVIEWED, PT IN THERAPY. ADA DIET WITH GOOD INTAKE RECENT MEALS. WILL CONTINUE TO PROVIDE DIET, MONITOR PO INTAKE. RD FOLLOWING
--- NOTE | 2019-06-22 12:00 | NUR ---
SITTING UP EATING LUNCH.
[2019-06-22 19:00] VITALS: BP 124/58
--- NOTE | 2019-06-22 19:29 | NUR ---
GREETED PATIENT AND INTRODUCED MYSELF HER NURSE. PATIENT IS LAYING IN BED WATCHING TV. RESPIRATIONS EVEN. NO S/S OF DISTRESS. DENIES ANY PAIN AT THIS TIME. SR UP X 2. BED IN LOWEST POSITION. CALL LIGHT IN REACH.
--- NOTE | 2019-06-22 23:45 | NUR ---
PATIENTS FAMILY MEMBER ON UNIT COMING TO VISIT.
--- NOTE | 2019-06-23 03:24 | NUR ---
PATIENT RESTING QUIETLY WITH EYES CLOSED. RESPIRATIONS EVEN. NO S/S OF DISTRESS. CALL LIGHT IN REACH.
[2019-06-23 07:17] LABS: BASOPHILS 0.1 % (0-2); EOSINOPHILS 1.6 % (0-7); HEMATOCRIT 32.3 % (36.0-48.0); HEMOGLOBIN 9.9 g/dL (12-16); IMMATURE GRANULOCYTES 6.6 % (0-5); MCH 30.9 pg (26.0-34.0); MCHC 30.7 g/dL (31.0-37.0); MEAN PLATELET VOLUME 8.8 fL (7.4-10.4); MONOCYTES 7.4 % (2-11); NEUTROPHILS 50.3 % (40-80); PLATELET COUNT 280 10x3/uL (130-400); RDW 13.5 % (11.5-14.5); WBC 10.8 10x3/uL (4.8-10.8)
[2019-06-23 07:18] LABS: MCV 100.9 fL (80.0-100.0)
--- NOTE | 2019-06-23 07:30 | NUR ---
RESTING QUIETLY IN BED. EYES CLOSED. NO RESP DISTRESS NOTED. CALL LIGHT IN REACH
[2019-06-23 07:37] VITALS: BP 126/57
[2019-06-23 07:38] LABS: CALC OSMOLALITY 295 mosm/kg (275-300); CALCIUM 9.3 mg/dL (8.5-10.1); CARBON DIOXIDE 28.9 mmol/L (21.0-32.0); CHLORIDE - SERUM 108 mmol/L (98-107); CREATININE - SERUM 0.8 mg/dL (0.6-1.3); GLUCOSE 102 mg/dL (74-106); POTASSIUM - SERUM 4.6 mmol/L (3.5-5.1); SODIUM 144 mmol/L (136-145); UREA NITROGEN 39 mg/dL (7-18); eGFR NON AFRICAN AMERICAN 75 mL/min (90-120)
--- NOTE | 2019-06-23 14:26 | NUR ---
LATE ENTRY: CLINICAL UPDATES FAXED TO [facility] AT , AUTH. # [id number] WITH CONFORMATION RECIEVED. SPOKE WITH SISTER ROWENA ABOUT PLACEMENT FOR HER SISTER. PATIENT WANTS A REFERRAL SENT TO THE [facility] FOR POSSIBLE PLACEMENT. [facility]SE FORMS FAXED WITH APPROVAL FROM [facility]. WILL CONTINUE TO FOLLOW WITH PATIENT.
--- NOTE | 2019-06-23 18:03 | NUR ---
RESTING IN BED. JUST FINISHED SUPPER AND NOW WATCHING TV. DENIES NEEDS OR C/O. CALL LIGHT IN REACH
--- NOTE | 2019-06-23 19:34 | NUR ---
GREETED PATIENT AND INTRODUCED MYSELF HER NURSE. PATIENT JUST FINISHED TAKING SHOWER AND BACK TO BED AND RESTING. RESPIRATIONS EVEN. NO S/S OF DISTRESS. DENIES ANY PAIN AT THIS TIME. CALL LIGHT IN REACH.
[2019-06-23 20:36] VITALS: BP 126/57
--- NOTE | 2019-06-23 21:28 | NUR ---
PT LYING IN BED WATCHING TV. ALERT AND ORIENTED X4. DENIES ANY NEEDS OR PAIN. NO SIGNS OF DISTRESS NOTED. CALL LIGHT AND WATER WITHIN REACH, FALL PRECAUTIONS IN PLACE
--- NOTE | 2019-06-24 01:03 | NUR ---
TOOK OVER CARE OF PT FROM GAMAL HARVEY. PT LYING IN BED EYES CLOSED RESTING QUIETLY. RR EVEN AND UNLABORED. CALL LIGHT AND WATER WITHIN REACH, FALL PRECAUTIONS IN PLACE. WILL CONTINUE TO MONITOR
--- NOTE | 2019-06-24 05:24 | NUR ---
PT LYING IN BED SUPINE EYES CLOSED RESTING QUIETLY. NO SIGNS OF DISTRESS NOTED. WILL CONTINUE TO MONITOR
[2019-06-24 08:00] VITALS: BP 105/49
--- NOTE | 2019-06-24 19:35 | NUR ---
PT SITTING UP IN BED. CL IN REACH. VISITORS IN ROOM. DENIES NEEDS AT THIS TIME. BED IN LOW SIDE RAILS X2. A/O X4. RESP EVEN AND UNLABORED. LUNGS CLEAR. BOWEL ACTIVE X4. WCTM
[2019-06-24 20:27] VITALS: BP 131/62
--- NOTE | 2019-06-25 00:30 | NUR ---
I have reviewed this patient and I concur with the Shift Assessment completed by the Licensed Practical Nurse today this shift.
--- NOTE | 2019-06-25 03:20 | NUR ---
ASSISTED TO AND FROM BATHROOM. DENIES FURTHER NEEDS. CL IN REACH. CPOC
[2019-06-25 08:00] VITALS: BP 111/59
--- NOTE | 2019-06-25 10:57 | NUR ---
LAYING IN BED WATCHING TV. WALKS WITH WALKER OR MIN ASST FROM STAFF TO BATHROOM. DENIES PAIN OR NEEDS. CALL LIGHT IN REACH
--- NOTE | 2019-06-25 19:50 | NUR ---
PT LYING IN BED WATCHING TV. CL IN REACH. DENIES NEEDS AT THIS TIME. BED IN LOW SIDE RAILS X2. RESP EVEN AND UNLABORED. A/O X4. WILL CONTINUE TO MONITOR.
[2019-06-25 20:42] VITALS: BP 122/52
--- NOTE | 2019-06-25 21:43 | NUR ---
I have reviewed this patient and I concur with the Shift Assessment completed by the Licensed Practical Nurse today this shift.
--- NOTE | 2019-06-26 04:14 | NUR ---
PT ASSISTED TO THE BATHROOM WITH CGA. VOIDED WITHOUT DIFFICULTY. NO FURTHER NEEDS VOICED.
[2019-06-26 07:47] LABS: BASOPHILS 0.2 % (0-2); EOSINOPHILS 1.8 % (0-7); HEMATOCRIT 35.8 % (36.0-48.0); IMMATURE GRANULOCYTES 3.8 % (0-5); LYMPHOCYTES 38.3 % (15-50); MCH 31.2 pg (26.0-34.0); MCHC 30.7 g/dL (31.0-37.0); MCV 101.4 fL (80.0-100.0); MONOCYTES 8.3 % (2-11); NEUTROPHILS 47.6 % (40-80); PLATELET COUNT 254 10x3/uL (130-400); RBC 3.53 10x6/uL (4.00-5.40); RDW 13.6 % (11.5-14.5); WBC 9.9 10x3/uL (4.8-10.8)
[2019-06-26 07:59] LABS: CALC OSMOLALITY 291 mosm/kg (275-300); CALCIUM 9.5 mg/dL (8.5-10.1); CARBON DIOXIDE 28.5 mmol/L (21.0-32.0); CHLORIDE - SERUM 106 mmol/L (98-107); CREATININE - SERUM 0.8 mg/dL (0.6-1.3); GLUCOSE 87 mg/dL (74-106); POTASSIUM - SERUM 4.8 mmol/L (3.5-5.1); SODIUM 142 mmol/L (136-145); UREA NITROGEN 40 mg/dL (7-18); eGFR NON AFRICAN AMERICAN 75 mL/min (90-120)
[2019-06-26 08:00] VITALS: BP 143/76
--- NOTE | 2019-06-26 13:33 | NUR ---
REFERRAL WAS FAXED TO THE [facility] AND THEY ARE NOT IN NETWORK WITH PATIENTS INSURANCE. REFERRAL HAS BEEN FAXED TO [facility] FOR POSSIBLE ADMISSION. WILL CONTINUE TO FOLLOW WITH PATIENT
--- NOTE | 2019-06-26 19:22 | NUR ---
GREETED PATIENT AND INTRODUCED MYSELF. ASSISTED PATIENT TO BATHROOM AND BACK TO BED AND REPOSITIONED FOR COMFORT. DENIES ANY FURHTER NEEDS AT THIS TIME. CALL LIGHT IN REACH.
[2019-06-26 20:37] VITALS: BP 118/59
--- NOTE | 2019-06-27 00:26 | NUR ---
PT. RESTING QUIETLY WITH EYES CLOSED. RESPIRATIONS EVEN. NO S/S OF DISTRESS. SR UP X 2. BED IN LOWEST POSITION. CALL LIGHT IN REACH.
[2019-06-27 08:00] VITALS: BP 142/51
--- NOTE | 2019-06-27 10:11 | NUR ---
LAYING IN BED WATCHING TV. IS DC'ING TODAY TO HOME. CALL LIGHT IN REACH
--- NOTE | 2019-06-27 11:58 | NUR ---
IN SHOWER. WANTED TO GET CLEAN PRIOR TO DC. NURSE WITH PT.
--- NOTE | 2019-06-27 16:29 | NUR ---
NO CHANGE IN ASSESSMENT. ASSISTED TO BED FROM WC MAX ASSIST.
--- NOTE | 2019-06-27 16:31 | NUR ---
NO CHANGE IN ASSESSMENT. SBA TO BED. CL IN REACH.
--- NOTE | 2019-06-27 19:20 | NUR ---
GREETED PATIENT AND INTRODUCED MYSELF HER NURSE. ASSISTED PATIENT TO BATHROOM AND HELPED CHANGE INTO NIGHT CLOTHES. RESPIRAITON EVEN. NO S/S OF DISTRESS. DENIES NO FURTHER NEEDS AT THIS TIME. CALL LIGHT IN REACH.
[2019-06-27 20:56] VITALS: BP 108/59
--- NOTE | 2019-06-28 02:11 | NUR ---
PT. RESTING QUIETLY WITH EYES CLOSED. RESPIRATIONS EVEN. NO S/S OF DISTRESS. CALL LIGHT IN REACH.
[2019-06-28 08:00] VITALS: BP 142/72
--- NOTE | 2019-06-28 08:00 | NUR ---
PATIENT IS ALERT/ORIENT. CALL LIGHT WITHIN REACH. VOICES NO NEEDS. PLAN TO DISCHARGE PATIENT TODAY
--- NOTE | 2019-06-28 19:06 | NUR ---
GREETED PATIENT AND INTRODUCED MYSELF HER NURSE. PATIENT IS LAYING IN BED WATCHING TV. DENIES ANY PAIN AT THIS TIME. RESPIRATIONS EVEN. NO S/S OF DISTRESS. SR UP X 2. BED IN LOWEST POSITION. CALL LIGHT IN REACH.
[2019-06-28 20:45] VITALS: BP 123/63
[2019-06-29 07:32] VITALS: BP 159/72
--- NOTE | 2019-06-29 08:32 | NUR ---
PATIENT IS ALERT/ORIENT. CALL LIGTH WITHIN REACH. VOICES NO NEEDS AT THIS TIME. WILL CONTINUE WITH PLAN OF CARE
--- NOTE | 2019-06-29 14:12 | NUR ---
DISCHARGE MEDICATIONS CALLED INTO [facility].
--- NOTE | 2019-06-29 14:13 | NUR ---
SPOKE WITH TANMAY AT [facility] AND SHE HAS NO RESPONSE FROM PATIENT INSURANCE, PATIENT WILL DISCHARGE HOME TODAY .
--- NOTE | 2019-06-29 14:51 | NUR ---
PATIENT HAS BEEN ACCEPTED TO [facility] AND WILL DISCHARGE THERE IN AM ON 06/30/19, VIA FACILITY VAN. FAMILY HAS BEEN NOTIFIED
--- NOTE | 2019-06-29 15:00 | NUR ---
ANU STATED THAT [facility] HAS NOW EXCEPTED THIS PATIENT. PATIENT WILL BED DISCHARGED TO [facility] TOMORROW 06/30/19 IN THE AM
[2019-06-29 21:11] VITALS: BP 116/60
--- NOTE | 2019-06-30 00:42 | NUR ---
PT. AWAKE AND WATCHING TV. DENIES ANY NEEDS AT THIS TIME. CALL LIGHT IN REACH.
[2019-06-30 08:55] VITALS: BP 150/72
--- NOTE | 2019-06-30 10:15 | NUR ---
PATIENT DISCHARGING TO [facility] VIA FACILITY VAN. NO HOME HEALTH OR DME NEEDED AT THIS TIME. AN APPOINTMENT WITH DR. CARPENTER WILL BE MADE AT TIME OF DSICHARGE FROM FACILITY. PATIENT CHOICE FORM AND [facility] FORMS SIGNED, COPY GIVEN TO PATIENT AND FILED IN CHART.DISCHARGE INSTRUCTIONS FAXED TO PCP , SNF AND REVIEWED WITH PATIENT.
--- NOTE | 2019-06-30 10:19 | NUR ---
RESTING QUIETLY IN BED. DENIES NEEDS. STATES SHE DID NOT SLEEP WELL LAST PM. IS WAITING ON INSURANCE CLEARANCE TO DC TO [facility]. CALL LIGHT IN REACH
--- NOTE | 2019-06-30 14:54 | NUR ---
REPORT CALLED TO SOLA PIERER LPN AT [facility]. TRANSPORT IS EXPECTED AT 3:15 PM TODAY.
--- NOTE | 2019-06-30 15:43 | NUR ---
DISCHARGE CLINICALS FAXED TO [facility] AT , AUTH. # [id number] WITH CONFORMATION RECIEVED
--- NOTE | 2019-08-29 09:55 | DS ---
PATIENT:JASVIR WICK :50 MEDICAL RECORD: [id number] DISCHARGE SUMMARY ADMISSION DATE: 06/14/19 DISCHARGE DATE: 06/30/19 This is a discharge dated 06/30/2019 from inpatient rehabilitation. PRIMARY DIAGNOSIS: Decreased functional ability and ability to provide activities of daily living secondary to an acute metabolic encephalopathy. SECONDARY DIAGNOSES: 1. Frequent falls. 2. Hypercalcemia. 3. Hypokalemia. 4. Renal insufficiency. 5. B12 deficiency. 6. Hypoparathyroidism. 7. Anemia. 8. Hypertension. 9. Hyperlipidemia. 10. Diabetes. 11. Gastroesophageal reflux disease. 12. Bipolar disorder. 13. Overactive bladder. HOSPITAL COURSE: Full H&P is located elsewhere on the chart on this 68-year-old female who was admitted to inpatient rehab for physical therapy and occupational therapy to improve gait, transfer skills, bed mobility, and activities of daily living to a modified independent level. She was evaluated by PT and OT and their plans of care were followed. She required longterm care for observation and assessment and medication administration. Electrolytes were managed by protocol. Fingerstick blood sugars were monitored throughout her hospital stay with appropriate adjustment in medications as needed. She was cooperative with therapies, progressing towards goals. Case management was involved for discharge planning. She was considered stable for discharge on 06/30/2019, having met all of her OT goals. She made significant progress with physical therapy, but had not met any of her goals. Continued therapy was recommended at discharge. DISCHARGE MEDICATIONS: As per discharge medication reconciliation. DISCHARGE DISPOSITION: The patient is discharged to [facility] for continued therapies and skilled care. She will see primary care at that rehab facility and will see her PCP upon discharge from there. She will follow up with specialists as directed. At least 30 minutes was spent in this discharge activity. TRANSINT:[id number] Voice Confirmation ID: [id number] DOCUMENT ID: [id number] Dictated By: LIZ RAMIREZ I have interviewed/examined the above patient and agree with these documented findings. DISCHARGE SUMMARY REPORT [id number] JASVIR WICK CARLOS ROSE MD at 0958 at 0955 CC: [id number] DICTATION DATE: 08/27/19 1702 CABLE TESTERS HELPER: 08/28/19 0115 DIS IN 06/30/19 [facility] [address] [place] [address]
== END 2019-06-30 15:30 | DRG 71 ==
LOC: D.REHAB 16:10
PROVIDERS: ADMIT Emergency Medicine; ATTEND Emergency Medicine
DX: G93.41 Metabolic encephalopathy (principal); N17.9 Acute kidney failure, unspecified; N39.0 Urinary tract infection, site not specified; E20.9 Hypoparathyroidism, unspecified; D72.819 Decreased white blood cell count, unspecified; R53.1 Weakness; R53.83 Other fatigue; D64.9 Anemia, unspecified; E53.8 Deficiency of other specified B group vitamins; I10 Essential (primary) hypertension; E78.5 Hyperlipidemia, unspecified; F31.9 Bipolar disorder, unspecified; E87.8 Other disorders of electrolyte and fluid balance, not elsewhere classified; E11.9 Type 2 diabetes mellitus without complications; N32.81 Overactive bladder; S09.90XA Unspecified injury of head, initial encounter; X58.XXXA Exposure to other specified factors, initial encounter